=== PATIENT | female | born 1935 ===

== ENCOUNTER 2017-10-24 13:03 | Inpatient (IN) | payer MEDICARE, OTHER ==
[2017-10-24 13:15] VITALS: BMI 23.0
--- NOTE | 2017-10-24 14:08 | C.PDOC ---
History Of Present Illness 82 yr old female with PMHx of HTN and cholesterol, presents to the ER s/p slip and fall. Patient states she was in [employer] when she slipped landing on her right hip. Reports of pain to the area. Denies LOC, head injury, back pain, weakness or numbness. 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 Are (Timing): Still Present Recent travel outside of the [place]: No - Hip Description Of Injury: Fell Past Medical History Reviewed: Historical Data, Nursing Documentation, Vital Signs Vital Signs: Last Vital Signs Temp 97.7 F 10/24/17 13:16 Pulse 69 10/24/17 15:59 Resp 18 10/24/17 15:59 BP 135/63 10/24/17 15:59 Pulse Ox 96 10/24/17 15:59 - Medical History PMH: HTN, Hypercholesterolemia Family History: States: No Known Family Hx - Social History Hx Alcohol Use: No Hx Substance Use: No - Immunization History Hx Tetanus Toxoid Vaccination: Yes Hx Influenza Vaccination: No Hx Pneumococcal Vaccination: No Review Of Systems Except As Marked, All Systems Reviewed And Found Negative. Musculoskeletal: Positive for: Other ((+) right hip pain). Negative for: Back Pain Neurological: Negative for: Weakness, Numbness Physical Exam - Physical Exam Appears: Non-toxic, No Acute Distress Skin: Warm, Dry, No Rash Head: Atraumatic, Normacephalic Neck: Normal ROM, Supple Respiratory: Normal Breath Sounds, No Rales, No Rhonchi, No Stridor, No Wheezing Extremity: Normal ROM, No Calf Tenderness, Other ((+) Right hip, tenderness with rotation) Pulses: Left Dorsalis Pedis: Normal, Right Dorsalis Pedis: Normal Neurological/Psych: Oriented x3, Normal Speech, Normal Motor ED Course And Treatment - Laboratory Results Result Diagrams: 10/24/17 15:30 10/24/17 15:30 O2 Sat by Pulse Oximetry: 100 (RA) Pulse Ox Interpretation: Normal - Other Rad X-Ray - Right Hip w/ Pelvis X-Ray: Viewed By Me, Read By Radiologist Interpretation: Indication: Rule out fracture, status post fall. Right hip with pelvis radiographs. Comparison: None available. Findings: Examination limited by habitus. Comminuted displaced right intratrochanteric fracture deformity. The femoral heads appear located. Sacroiliac joints appear intact. Mild constipation. No evidence of radiopaque foreign body. Impression: Comminuted displaced intertrochanteric right hip fracture. ER aware of the above findings at the time of dictation as per Alisha on 10/24/17 at 3:22 p.m. CXR X-Ray: Viewed By Me, Read By Radiologist Interpretation: Chest x-ray single frontal view. History: Shortness of breath. Comparison: None available. Findings: Side plate with screw fixation of prior left humeral fracture. Productive change along fracture site medially and laterally. Clinical correlation. Biapical pleural thickening with upper lobe granulomatous changes. Diffuse increased interstitial lung markings. No gross focal infiltrate or effusion. Tortuous aorta. Degenerative changes in the spine and right shoulder. Impression: Biapical pleural thickening with upper lobe granulomatous changes. Diffuse increased interstitial lung markings. No gross focal infiltrate or effusion. Progress Note: Spoke to Dr. Francisco Garcia and Dr. Shayan gamboa patient. Dr. Francisco Garcia requested CAT scan of the hip. Patient is pending CAT scan report. Medical Decision Making Medical Decision Making: PLAN: * CT - Right Hip * X-Ray - Right Hip w/ Pelvis * CXR * Tylenol PO Disposition Discussed With : Nayan Downey Jr. Counseled Patient/Family Regarding: Studies Performed, Diagnosis - Disposition Disposition: HOSPITALIZED Disposition Time: 15:05 Condition: GUARDED - POA Present On Arrival: None - Clinical Impression Clinical Impression: Femoral neck fracture - Scribe Statement The provider has reviewed the documentation as recorded by the Maya Coffey Provider Attestation: All medical record entries made by the Maya were at my direction and personally dictated by me. I have reviewed the chart and agree that the record accurately reflects my personal performance of the history, physical exam, medical decision making, and the department course for this patient. I have also personally directed, reviewed, and agree with the discharge instructions and disposition. Decision To Admit - Pt Status Changed To: Hospital Disposition Of: Inpatient - Admit Certification Admit to Inpatient:: After my assessment, the patient will require hospitalization for at least two midnights. This is because of the severity of symptoms shown, intensity of services needed, and/or the medical risk in this patient being treated as an outpatient. - InPatient: Physician Admission Certification: I certify that this patient requires 2 or more midnights of care for the following reason:: hip fracture - . Bed Request Type: Regular Patient Diagnosis: Femoral neck fracture
--- NOTE | 2017-10-24 15:19 | CP.PCM.HP ---
History of Present Illness - History of Present Illness History of Present Illness: Patient was seen and examined at approximately 4pm in the ED. Patient is a Full code status at this time until family is able to have a conversation and decide. emergency contacts: Daughter Sally Deng [phone]; Son Naren Deng [phone] CC: "I tripped and fell " HPI: 82 year old female with past medical history significant for HTN, hypercholesterolemia, osteoporosis and prior compression fracture approx 1.5 years ago presents with complaints of pain and instability of right leg. Patient was at [facility] earlier this afternoon when she tripped and fell on a rug while going down a short flight of stairs. Patient denies any trauma at the time. She states that she attempted to stand with the help of nearby friends and the solar engineer but was unable to. She was thus brought to the hospital for further evaluation. Patient states that she had a fall back in July which resulted in a fracture of her left arm requiring surgery. Patient states that prior to this event and her fall back in July, she felt just fine. She states that she has been going to physical therapy three times a week following the arm fracture. Prior to these recent falls, patient has not had any issues ambulating . She denies any other contributing factors such as dizziness, headaches, lightheadedness, chest pain, dyspnea, trouble ambulating, paresthesias or palpitations at this time. Past Medical history: as stated above Past Surgical History: Left arm surgery approx August 13, 2017 Family History: Dad and brother of heart disease, Sister had diabetes; Mom had a lung condition as well as dysphagia Medications: Patient is unsure at this time. She states that she takes something for her HTN and cholesterol. 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 Allergies: no known drug allergies PMD: Dr. Javier Painter on [facility] In ED: Labs were obtained. XRAY of the hip and pelvis was taken- Confirming right hip fracture. Patient administered Tylenol and morphine Present on Admission - Present on Admission Any Indicators Present on Admission: No Review of Systems - Review of Systems Systems not reviewed;Unavailable: Language Barrier - Constitutional Constitutional: absent: Weight Loss, Weakness - EENT Eyes: absent: Blurred Vision, Change in Vision Ears: absent: Decreased Hearing, Ear Discharge Nose/Mouth/Throat: absent: Nasal Congestion, Nasal Discharge - Cardiovascular Cardiovascular: absent: Chest Pain - Respiratory Respiratory: absent: Dyspnea, Dyspnea on Exertion - Gastrointestinal Gastrointestinal: absent: Heartburn, Nausea, Vomiting - Musculoskeletal Musculoskeletal: Abnormal Gait, Limited Range of Motion. absent: Stiffness, Tingling - Neurological Neurological: absent: Dizziness, Numbness, Headaches, Sensory Deficit, Tingling , Tremor Past Patient History - Past Social History Smoking Status: Never Smoked Alcohol: None Drugs: Denies - CARDIAC Hx Hypercholesterolemia: Yes Hx Hypertension: Yes - PSYCHIATRIC Hx Substance Use: No - SURGICAL HISTORY Other/Comment: (L) arm surgery post fall "2 months ago" Meds Allergies/Adverse Reactions: Allergies Allergy/AdvReac Type Severity Reaction Status Date / Time No Known Allergies Allergy Unverified 10/24/17 13:15 Physical Exam - Constitutional Appears: Non-toxic, No Acute Distress - Head Exam Head Exam: ATRAUMATIC, NORMAL INSPECTION, NORMOCEPHALIC - Eye Exam Eye Exam: EOMI, Normal appearance, PERRL Pupil Exam: NORMAL ACCOMODATION - ENT Exam ENT Exam: Mucous Membranes Moist - Neck Exam Neck exam: Positive for: Full Rom - Respiratory Exam Respiratory Exam: Clear to Auscultation Bilateral, NORMAL BREATHING PATTERN. absent: Wheezes - Cardiovascular Exam Cardiovascular Exam: REGULAR RHYTHM, +S1, +S2. absent: Bradycardia, Tachycardia , Irregular Rhythm, JVD, Systolic Murmur - GI/Abdominal Exam GI & Abdominal Exam: Normal Bowel Sounds, Soft. absent: Guarding - Extremities Exam Extremities exam: Negative for: full ROM (decreased range of motion of right lower extremity, sensation intact) - Expanded Lower Extremities Exam Right Upper Leg exam: absent: full ROM Lower Leg Exam: absent: full ROM Neuro vacular tendon exam: absent: decreased fine/light touch, extremity cold to touch, pulse deficit, sensory deficit Gait: unable to bear weight - Neurological Exam Neurological exam: Alert, Oriented x3 - Expanded Neurological Exam Expanded Cranial nerves: EOM's Intact: Normal, Facial Sensation: Normal Sensory exam: Lower Extremity Light Touch: Normal, Lower Extremity Temperature: Normal, Upper Extremity Light Touch: Normal, Upper Extremity Temperature: Normal - Psychiatric Exam Psychiatric exam: Normal Affect, Normal Mood - Skin Skin Exam: Dry, Normal Color, Warm Results - Vital Signs Recent Vital Signs: Last Vital Signs Temp 97.7 F 10/24/17 13:16 Pulse 68 10/24/17 13:16 Resp 18 10/24/17 13:16 BP 181/77 H 10/24/17 13:16 Pulse Ox 100 10/24/17 15:07 - Labs Result Diagrams: 10/24/17 15:30 10/24/17 15:30 Assessment & Plan (1) Fracture of right hip Assessment and Plan: Xray of the Hip and Pelvis- Comminuted displaced right intratrochanteric fracture deformity. The femoral heads appear located. Sacroiliac joints appear intact. Mild constipation. No evidence of radiopaque foreign body. Refer to complete report F/U Hip CT F/U Ortho recommendations CXR- Biapical pleural thickening with upper lobe granulomatous changes. Diffuse increased interstitial lung markings. F/U EKG ( Pre-Op) F/U Am labs, Coags Status: Acute (2) Hypertension Assessment and Plan: Normotensive at this time May be elevated secondarily due to pain Continue to monitor Status: Chronic (3) Hypercholesteremia Assessment and Plan: Patient's daughter will try to bring in medication list. Status: Chronic (4) Osteoporosis Assessment and Plan: Hx of Osteoporosis Patient would benefit from DEXA Scan outpatient if she has not already obtained with primary medical doctor. F/U Vitamin D Level 25-OH Status: Chronic (5) Prophylactic measure Assessment and Plan: Contraindications for Chemical and Mechanical anticoagulation due to acute fracture. Hold off at this time in anticipation of surgery. Pepcid 20 mg PO BID Status: Acute - Assessment and Plan (Free Text) Assessment: Discussed with attending. All management and planning per Dr. Downey.
--- NOTE | 2017-10-24 15:25 | RAD ---
Indication: Rule out fracture, status post fall Right hip with pelvis radiographs Comparison: None available Findings: Examination limited by habitus. Comminuted displaced right intratrochanteric fracture deformity. The femoral heads appear located. Sacroiliac joints appear intact. Mild constipation. No evidence of radiopaque foreign body. Impression: Comminuted displaced intertrochanteric right hip fracture. ER aware of the above findings at the time of dictation as per Alisha on 10/24/17 at 3:22 p.m.
[2017-10-24 15:38] LABS: BASO # 0.1 K/uL (0.0-0.2); BASO % 0.4 % (0.0-2.0); EOS % 0.2 % (0.0-4.0); HEMOGLOBIN 14.5 g/dL (11.0-16.0); LYMPH # 1.3 K/uL (1.0-4.3); LYMPH % 10.5 % (20.0-40.0); MEAN CELL VOLUME 95.3 fL (81.0-99.0); MEAN CORPUSCULAR HEMOGLOBIN 31.7 pg (27.0-31.0); MEAN CORPUSCULAR HGB CONC 33.3 g/dL (33.0-37.0); MEAN PLATELET VOLUME 9.6 fL (7.2-11.7); MONO # 0.7 K/uL (0.0-0.8); MONO % 5.7 % (0.0-10.0); NEUT % 83.2 % (50.0-75.0); NRBC % 0.1 % (0.0-2.0); RBC 4.58 Mil/uL (3.80-5.20); RED CELL DISTRIBUTION WIDTH 13.9 % (11.5-14.5)
--- NOTE | 2017-10-24 15:51 | RAD ---
Chest x-ray single frontal view History: Shortness of breath. Comparison: None available. Findings: Side plate with screw fixation of prior left humeral fracture. Productive change along fracture site medially and laterally. Clinical correlation. Biapical pleural thickening with upper lobe granulomatous changes. Diffuse increased interstitial lung markings. No gross focal infiltrate or effusion. Tortuous aorta. Degenerative changes in the spine and right shoulder. Impression: Biapical pleural thickening with upper lobe granulomatous changes. Diffuse increased interstitial lung markings. No gross focal infiltrate or effusion.
[2017-10-24 15:55] LABS: CALCIUM 9.2 mg/dl (8.6-10.4); GFR AFRICAN-AMERICAN > 60; GFR NON-AFRICAN AMERICAN > 60
[2017-10-24 16:14] LABS: BLOOD UREA NITROGEN 18 mg/dL (7-17)
[2017-10-25 06:54] LABS: BASO % 0.3 % (0.0-2.0); LYMPH # 1.8 K/uL (1.0-4.3); LYMPH % 18.9 % (20.0-40.0); MEAN CORPUSCULAR HEMOGLOBIN 32.5 pg (27.0-31.0); MEAN CORPUSCULAR HGB CONC 34.2 g/dL (33.0-37.0); MEAN PLATELET VOLUME 9.9 fL (7.2-11.7); MONO % 10.2 % (0.0-10.0); NEUT # 6.7 K/uL (1.8-7.0); NEUT % 70.6 % (50.0-75.0); RBC 3.73 Mil/uL (3.80-5.20); RED CELL DISTRIBUTION WIDTH 13.7 % (11.5-14.5); WHITE BLOOD COUNT 9.5 K/uL (4.8-10.8)
[2017-10-25 07:00] LABS: HEMOGLOBIN 12.1 g/dL (11.0-16.0)
[2017-10-25 07:01] LABS: INR 1.1; PROTHROMBIN TIME 12.1 SECONDS (9.7-12.2)
--- NOTE | 2017-10-25 07:20 | CP.PCM.PN ---
Subjective - Date & Time of Evaluation Date of Evaluation: 10/25/17 Time of Evaluation: 07:20 - Subjective Subjective: Medicine Progress Note: Hospitalist Service Patient seen and examined at bedside. Per nursing no acute events overnight. Patient is doing w Objective - Vital Signs/Intake and Output Vital Signs (last 24 hours): Temp Pulse Resp BP Pulse Ox 98.0 F 93 H 20 148/87 97 10/24/17 23:20 10/24/17 23:20 10/24/17 23:20 10/24/17 23:20 10/24/17 23:20 Intake and Output: 10/25/17 10/25/17 06:59 18:59 Intake Total 0 Balance 0 - Medications Medications: Current Medications Famotidine (Pepcid) 20 mg PO BID [facility] Last Admin: 10/24/17 18:27 Dose: 20 mg Home Med (Atorvastatin Calcium [Atorvastatin Calcium]) 10 mg PO DAILY [facility] Sodium Chloride (Sodium Chloride 0.9%) 1,000 mls @ 100 mls/hr IV .Q10H [facility] Last Admin: 10/25/17 00:00 Dose: Not Given Metoprolol Tartrate (Lopressor) 50 mg PO BID [facility] Morphine Sulfate (Morphine) 1 mg IV Q4 PRN PRN Reason: Pain, moderate (4-7) Last Admin: 10/25/17 01:19 Dose: 1 mg - Labs Labs: 10/25/17 06:45 10/24/17 15:30 PT 12.1 SECONDS (9.7-12.2) 10/25/17 06:45 INR 1.1 10/25/17 06:45 APTT 18 SECONDS (21-34) L 10/25/17 06:45
[2017-10-25] MEDS ORDERED: Enoxaparin 40 mg Syringe SC ONE (07:25)
--- NOTE | 2017-10-25 07:25 | CP.PCM.CON ---
History of Present Illness - History of Present Illness History of Present Illness: ORthopedic consultation as per Dr. Bolden 82F complains of right hip pain after fall, found to have right hip fx. Denies CP/SOB/dizziness/n/v/numbmess/tinging. PMH: HTN NKDA Past Patient History - Past Medical History & Family History Past Medical History?: Yes - Past Social History Smoking Status: Never Smoked - CARDIAC Hx Cardiac Disorders: Yes Hx Hypercholesterolemia: Yes Hx Hypertension: Yes - PULMONARY Hx Respiratory Disorders: No - NEUROLOGICAL Hx Neurological Disorder: No - HEENT Hx HEENT Problems: No - RENAL Hx Chronic Kidney Disease: No - ENDOCRINE/METABOLIC Hx Endocrine Disorders: No - HEMATOLOGICAL/ONCOLOGICAL Hx Blood Disorders: No - INTEGUMENTARY Hx Dermatological Problems: No - MUSCULOSKELETAL/RHEUMATOLOGICAL Hx Musculoskeletal Disorders: Yes Hx Falls: Yes - GASTROINTESTINAL Hx Gastrointestinal Disorders: No - GENITOURINARY/GYNECOLOGICAL Hx Genitourinary Disorders: No - PSYCHIATRIC Hx Psychophysiologic Disorder: No Hx Substance Use: No - SURGICAL HISTORY Hx Surgeries: No Other/Comment: (L) arm surgery post fall "2 months ago" - ANESTHESIA Hx Anesthesia: Yes Hx Anesthesia Reactions: No Hx Malignant Hyperthermia: No Has any member of the family had a problem w/ anesthesia?: No Meds Allergies/Adverse Reactions: Allergies Allergy/AdvReac Type Severity Reaction Status Date / Time No Known Allergies Allergy Unverified 10/24/17 13:15 - Medications Medications: Current Medications Famotidine (Pepcid) 20 mg PO BID [facility] Last Admin: 10/24/17 18:27 Dose: 20 mg Home Med (Atorvastatin Calcium [Atorvastatin Calcium]) 10 mg PO DAILY [facility] Sodium Chloride (Sodium Chloride 0.9%) 1,000 mls @ 100 mls/hr IV .Q10H [facility] Last Admin: 10/25/17 00:00 Dose: Not Given Metoprolol Tartrate (Lopressor) 50 mg PO BID [facility] Morphine Sulfate (Morphine) 1 mg IV Q4 PRN PRN Reason: Pain, moderate (4-7) Last Admin: 10/25/17 01:19 Dose: 1 mg Physical Exam - Constitutional Appears: Well, No Acute Distress - Head Exam Head Exam: ATRAUMATIC - Respiratory Exam Respiratory Exam: NORMAL BREATHING PATTERN - Back Exam Additional comments: LLE: in bucks traction +ROM ankle/toes, sensation intact, calves soft NT neg homans, shortened - Neurological Exam Neurological exam: Alert, Oriented x3 - Psychiatric Exam Psychiatric exam: Normal Affect, Normal Mood - Skin Skin Exam: Dry, Intact, Normal Color, Warm Results - Vital Signs Recent Vital Signs: Last Vital Signs Temp 98.0 F 10/24/17 23:20 Pulse 93 H 10/24/17 23:20 Resp 20 10/24/17 23:20 BP 148/87 10/24/17 23:20 Pulse Ox 97 10/24/17 23:20 - Labs Result Diagrams: 10/26/17 11:26 10/26/17 11:26 Labs: Laboratory Results - last 24 hr 10/24/17 10/24/17 10/24/17 15:30 15:30 15:30 WBC 12.0 H RBC 4.58 Hgb 14.5 Hct 43.6 MCV 95.3 MCH 31.7 H MCHC 33.3 RDW 13.9 Plt Count 167 MPV 9.6 Neut % (Auto) 83.2 H Lymph % (Auto) 10.5 L Maverick % (Auto) 5.7 Eos % (Auto) 0.2 Baso % (Auto) 0.4 Neut # 10.0 H Lymph # 1.3 Maverick # 0.7 Eos # 0.0 Baso # 0.1 PT INR APTT Sodium 133 Potassium 5.9 H Chloride 101 Carbon Dioxide 22 Anion Gap 16 BUN 18 H Creatinine 0.6 L Est GFR ( Amer) > 60 Est GFR (Non-Af Amer) > 60 Random Glucose 106 H Calcium 9.2 Blood Type O POSITIVE Antibody Screen Negative 10/25/17 10/25/17 06:45 06:45 WBC 9.5 RBC 3.73 L Hgb 12.1 D Hct 35.5 MCV 95.0 MCH 32.5 H MCHC 34.2 RDW 13.7 Plt Count 134 MPV 9.9 Neut % (Auto) 70.6 Lymph % (Auto) 18.9 L Maverick % (Auto) 10.2 H Eos % (Auto) 0.0 Baso % (Auto) 0.3 Neut # 6.7 Lymph # 1.8 Maverick # 1.0 H Eos # 0.0 Baso # 0.0 PT 12.1 INR 1.1 APTT 18 L Sodium Potassium Chloride Carbon Dioxide Anion Gap BUN Creatinine Est GFR ( Amer) Est GFR (Non-Af Amer) Random Glucose Calcium Blood Type Antibody Screen Assessment & Plan (1) Closed intertrochanteric fracture of right femur Assessment and Plan: Plan OR 10/[address] Yuan mcnair u/a t&C SCD lovenox 40mgSQ now and then hold for OR d/w Dr. Bolden, agrees with above Status: Acute
--- NOTE | 2017-10-25 07:54 | CP.PCM.PN ---
Subjective - Date & Time of Evaluation Date of Evaluation: 10/25/17 Time of Evaluation: 07:54 - Subjective Subjective: Medicine Progress Note: Dr Downey service Patient seen and examined at bedside. Per nursing no acute events overnight. Patient having right hip pain. Also states that she is not hungry and has low appetite. Of note, patient does have urge to urinate but has not been able to urinate using the bedpan. Last time was yesterday morning. Patient going to OR tomorrow with ortho. Denies headaches, chest pain palpitations, sob, abdominal pain, changes in bowel habits. Objective - Vital Signs/Intake and Output Vital Signs (last 24 hours): Temp Pulse Resp BP Pulse Ox 98.0 F 93 H 20 148/87 97 10/24/17 23:20 10/24/17 23:20 10/24/17 23:20 10/24/17 23:20 10/24/17 23:20 Intake and Output: 10/25/17 10/25/17 06:59 18:59 Intake Total 0 Balance 0 - Medications Medications: Current Medications Famotidine (Pepcid) 20 mg PO BID [facility] Last Admin: 10/24/17 18:27 Dose: 20 mg Home Med (Atorvastatin Calcium [Atorvastatin Calcium]) 10 mg PO DAILY [facility] Sodium Chloride (Sodium Chloride 0.9%) 1,000 mls @ 100 mls/hr IV .Q10H [facility] Last Admin: 10/25/17 00:00 Dose: Not Given Metoprolol Tartrate (Lopressor) 50 mg PO BID [facility] Morphine Sulfate (Morphine) 1 mg IV Q4 PRN PRN Reason: Pain, moderate (4-7) Last Admin: 10/25/17 01:19 Dose: 1 mg - Labs Labs: 10/25/17 06:45 10/24/17 15:30 PT 12.1 SECONDS (9.7-12.2) 10/25/17 06:45 INR 1.1 10/25/17 06:45 APTT 18 SECONDS (21-34) L 10/25/17 06:45 - Constitutional Appears: Non-toxic, No Acute Distress - Head Exam Head Exam: ATRAUMATIC, NORMAL INSPECTION - Eye Exam Eye Exam: EOMI, Normal appearance - Respiratory Exam Respiratory Exam: Clear to Ausculation Bilateral, NORMAL BREATHING PATTERN. absent: Rales, Rhonchi, Wheezes - Cardiovascular Exam Cardiovascular Exam: Tachycardia, Irregular Rhythm, +S1, +S2 - GI/Abdominal Exam GI & Abdominal Exam: Soft, Normal Bowel Sounds. absent: Firm, Guarding, Rigid, Tenderness - Extremities Exam Additional comments: +Right sided hip pain - Neurological Exam Neurological Exam: Alert, Awake, Oriented x3 - Psychiatric Exam Psychiatric exam: Normal Affect, Normal Mood - Skin Skin Exam: Dry, Normal Color, Warm Assessment and Plan - Assessment and Plan (Free Text) Assessment: (1) Fracture of right hip Assessment and Plan: * Xray of the Hip and Pelvis- Comminuted displaced right intratrochanteric fracture deformity. The femoral heads appear located. Sacroiliac joints appear intact. Mild constipation. No evidence of radiopaque foreign body. Refer to complete report * Hip CT showed acute intertrochanteric fracture of the right hip * Patient will be NPO after midnight, going to the OR tomorrow * Ortho on consult, Dr Francisco Foley, F/U recommendations * CXR- Biapical pleural thickening with upper lobe granulomatous changes. Diffuse increased interstitial lung markings. * EKG 10/25/17: Atrial fibrillation with RVR * F/U Am labs, Coags Status: Acute (2) New Onset Afib Assessment and Plan: * EKG this morning showed Afib with RVR * Monitor on telemetry * Continue Lopressor 50mg PO BID * Added Cardizem 60mg PO BID * Echo ordered, f/u official read * Cardiology on consult, Dr Soliman, F/U recommendations (3) Hypertension Assessment and Plan: * Normotensive at this time * May be elevated secondarily due to pain * Continue to monitor Status: Chronic (4) Hypercholesteremia Assessment and Plan: * Patient's daughter will try to bring in medication list. Status: Chronic (5) Osteoporosis Assessment and Plan: * Hx of Osteoporosis * Patient would benefit from DEXA Scan outpatient if she has not already obtained with primary medical doctor. * F/U Vitamin D Level 25-OH Status: Chronic (6) Prophylactic measure Assessment and Plan: * Contraindications for Chemical and Mechanical anticoagulation due to acute fracture. * Hold off at this time in anticipation of surgery. * Pepcid 20 mg PO BID Status: Acute
[2017-10-25 08:18] LABS: ALB/GLOB RATIO 1.1 (1.0-2.1); ALBUMIN 3.5 g/dL (3.5-5.0); ALT/SGPT 21 U/L (9-52); AST/SGOT 23 U/L (14-36); BLOOD UREA NITROGEN 15 mg/dL (7-17); CALCIUM 8.4 mg/dl (8.6-10.4); GFR AFRICAN-AMERICAN > 60; GFR NON-AFRICAN AMERICAN > 60; MAGNESIUM 1.5 mg/dL (1.6-2.3)
--- NOTE | 2017-10-25 08:28 | CT ---
CT right hip History: Injury. Comparison: None available. Technique: Multiple contiguous axial images were performed through the right hip without intravenous contrast. Subsequently, sagittal and coronal reformatted images were obtained. This CT exam was performed using one or more of the following dose reduction techniques: Automated exposure control, adjustment of the mA and/or kV according to patient size, and/or use of iterative reconstruction technique. Findings: Intertrochanteric fracture of the right hip is present with moderate angulation and mild displacement. Butterfly fragment is seen involving the lesser trochanter. Subchondral cyst formation within the anterior acetabulum. Productive change along the acetabulum laterally. Diffuse osteopenia. 1 centimeter bone island in the right iliac bone. Productive change at the pubic symphysis. Uterine calcifications. Moderate amount of fecal retention in the colon. Impression: Acute intertrochanteric fracture of the right hip as described above. These findings were preliminarily reported at 5:43 p.m. on 10/24/[address] Rigo Tuttle from [facility].
[2017-10-25] MEDS: Sodium Chloride 0.9% 1,000 ML IV SCH ×3 (10:44→20:01)
[2017-10-25 11:22] LABS: SQUAMOUS EPITHIAL < 1 /hpf (0-5); URINE BACTERIA MANY (<OCC); URINE BILIRUBIN NEGATIVE (NEGATIVE); URINE BLOOD 2+ (NEGATIVE); URINE CLARITY Clear (Clear); URINE COLOR Yellow (YELLOW); URINE GLUCOSE (UA) NORMAL (Normal); URINE LEUKOCYTE ESTERASE NEG Leu/uL (Negative); URINE NITRATE NEGATIVE (NEGATIVE); URINE PROTEIN NEGATIVE (NEGATIVE); URINE UROBILINOGEN NORMAL mg/dL (0.2-1.0)
--- NOTE | 2017-10-25 22:24 | CARD ---
APPROVED REPORT EKG Measurement Heart [id number] <Conclusion> Atrial fibrillation with rapid ventricular response ST & T wave abnormality, consider inferior ischemia ST & T wave abnormality, consider anterior ischemia Abnormal ECG
--- NOTE | 2017-10-25 22:30 | CP.PCM.CON ---
History of Present Illness - History of Present Illness History of Present Illness: CC: Pre Op cardiac Risk assessment HPI: 82 year old female with past medical history significant for HTN, hypercholesterolemia, osteoporosis and prior compression fracture approx 1.5 years ago presents with complaints of pain and instability of right leg. Patient was at [employer] earlier this afternoon when she tripped and fell on a rug while going down a short flight of stairs. Patient denies any trauma at the time. She states that she attempted to stand with the help of nearby friends and the microsoft application developer but was unable to. She was thus brought to the hospital for further evaluation. Patient states that she had a fall back in July which resulted in a fracture of her left arm requiring surgery. Patient states that prior to this event and her fall back in July, she felt just fine. She states that she has been going to physical therapy three times a week following the arm fracture. Prior to these recent falls, patient has not had any issues ambulating . She denies any other contributing factors such as dizziness, headaches, lightheadedness, chest pain, dyspnea, trouble ambulating, paresthesias or palpitations at this time. Past Medical history: as stated above Past Surgical History: Left arm surgery approx August 13, 2017 Family History: Dad and brother of heart disease, Sister had diabetes; Mom had a lung condition as well as dysphagia Medications: Patient is unsure at this time. She states that she takes something for her HTN and cholesterol. 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 Allergies: no known drug allergies PMD: Dr. Javier Painter on [facility] in [facility] In ED: Labs were obtained. XRAY of the hip and pelvis was taken- Confirming right hip fracture. Patient administered Tylenol and morphine Present on Admission - Present on Admission Any Indicators Present on Admission: No Review of Systems - Review of Systems Systems not reviewed;Unavailable: Language Barrier - Constitutional Constitutional: absent: Weight Loss, Weakness - EENT Eyes: absent: Blurred Vision, Change in Vision Ears: absent: Decreased Hearing, Ear Discharge Nose/Mouth/Throat: absent: Nasal Congestion, Nasal Discharge - Cardiovascular Cardiovascular: absent: Chest Pain - Respiratory Respiratory: absent: Dyspnea, Dyspnea on Exertion - Gastrointestinal Gastrointestinal: absent: Heartburn, Nausea, Vomiting - Musculoskeletal Musculoskeletal: Abnormal Gait, Limited Range of Motion. absent: Stiffness, Tingling - Neurological Neurological: absent: Dizziness, Numbness, Headaches, Sensory Deficit, Tingling , Tremor Meds Allergies/Adverse Reactions: Allergies Allergy/AdvReac Type Severity Reaction Status Date / Time No Known Allergies Allergy Unverified 10/24/17 13:15 Physical Exam - Constitutional Appears: Non-toxic, No Acute Distress - Head Exam Head Exam: ATRAUMATIC, NORMAL INSPECTION, NORMOCEPHALIC - Eye Exam Eye Exam: EOMI, Normal appearance, PERRL Pupil Exam: NORMAL ACCOMODATION - ENT Exam ENT Exam: Mucous Membranes Moist - Neck Exam Neck exam: Positive for: Full Rom - Respiratory Exam Respiratory Exam: Clear to Auscultation Bilateral, NORMAL BREATHING PATTERN. absent: Wheezes - Cardiovascular Exam Cardiovascular Exam: REGULAR RHYTHM, +S1, +S2. absent: Bradycardia, Tachycardia , Irregular Rhythm, JVD, Systolic Murmur - GI/Abdominal Exam GI & Abdominal Exam: Normal Bowel Sounds, Soft. absent: Guarding - Extremities Exam Extremities exam: Negative for: full ROM (decreased range of motion of right lower extremity, sensation intact) - Expanded Lower Extremities Exam Right Upper Leg exam: absent: full ROM Lower Leg Exam: absent: full ROM Neuro vacular tendon exam: absent: decreased fine/light touch, extremity cold to touch, pulse deficit, sensory deficit Gait: unable to bear weight - Neurological Exam Neurological exam: Alert, Oriented x3 - Expanded Neurological Exam Expanded Cranial nerves: EOM's Intact: Normal, Facial Sensation: Normal Sensory exam: Lower Extremity Light Touch: Normal, Lower Extremity Temperature: Normal, Upper Extremity Light Touch: Normal, Upper Extremity Temperature: Normal - Psychiatric Exam Psychiatric exam: Normal Affect, Normal Mood - Skin Skin Exam: Dry, Normal Color, Warm Past Patient History - Past Medical History & Family History Past Medical History?: Yes - Past Social History Smoking Status: Never Smoked - CARDIAC Hx Cardiac Disorders: Yes Hx Hypercholesterolemia: Yes Hx Hypertension: Yes - PULMONARY Hx Respiratory Disorders: No - NEUROLOGICAL Hx Neurological Disorder: No - HEENT Hx HEENT Problems: No - RENAL Hx Chronic Kidney Disease: No - ENDOCRINE/METABOLIC Hx Endocrine Disorders: No - HEMATOLOGICAL/ONCOLOGICAL Hx Blood Disorders: No - INTEGUMENTARY Hx Dermatological Problems: No - MUSCULOSKELETAL/RHEUMATOLOGICAL Hx Musculoskeletal Disorders: Yes Hx Falls: Yes - GASTROINTESTINAL Hx Gastrointestinal Disorders: No - GENITOURINARY/GYNECOLOGICAL Hx Genitourinary Disorders: No - PSYCHIATRIC Hx Psychophysiologic Disorder: No Hx Substance Use: No - SURGICAL HISTORY Hx Surgeries: No Other/Comment: (L) arm surgery post fall "2 months ago" - ANESTHESIA Hx Anesthesia: Yes Hx Anesthesia Reactions: No Hx Malignant Hyperthermia: No Has any member of the family had a problem w/ anesthesia?: No Meds Allergies/Adverse Reactions: Allergies Allergy/AdvReac Type Severity Reaction Status Date / Time No Known Allergies Allergy Unverified 10/24/17 13:15 - Medications Medications: Current Medications Diltiazem HCl (Cardizem) 60 mg PO BID [facility] Last Admin: 10/25/17 18:03 Dose: 60 mg Famotidine (Pepcid) 20 mg PO BID [facility] Last Admin: 10/25/17 18:03 Dose: 20 mg Sodium Chloride (Sodium Chloride 0.9%) 1,000 mls @ 100 mls/hr IV .Q10H [facility] Last Admin: 10/25/17 20:01 Dose: 100 mls/hr Metoprolol Tartrate (Lopressor) 50 mg PO BID [facility] Last Admin: 10/25/17 18:04 Dose: 50 mg Morphine Sulfate (Morphine) 1 mg IV Q4 PRN PRN Reason: Pain, moderate (4-7) Last Admin: 10/25/17 19:55 Dose: 1 mg Rosuvastatin Calcium (Crestor) 5 mg PO HS [facility] Last Admin: 10/25/17 22:01 Dose: 5 mg Results - Vital Signs Recent Vital Signs: Last Vital Signs Temp 99.0 F 10/25/17 15:25 Pulse 81 10/25/17 15:25 Resp 20 10/25/17 15:25 BP 117/69 10/25/17 15:25 Pulse Ox 94 L 10/25/17 15:25 - Labs Result Diagrams: 10/25/17 06:45 10/25/17 06:45 Labs: Laboratory Results - last 24 hr 10/25/17 10/25/17 10/25/17 06:45 06:45 06:45 WBC 9.5 RBC 3.73 L Hgb 12.1 D Hct 35.5 MCV 95.0 MCH 32.5 H MCHC 34.2 RDW 13.7 Plt Count 134 MPV 9.9 Neut % (Auto) 70.6 Lymph % (Auto) 18.9 L [place] % (Auto) 10.2 H Eos % (Auto) 0.0 Baso % (Auto) 0.3 Neut # 6.7 Lymph # 1.8 [place] # 1.0 H Eos # 0.0 Baso # 0.0 PT 12.1 INR 1.1 APTT 18 L Sodium Potassium Chloride Carbon Dioxide Anion Gap BUN Creatinine Est GFR ( Amer) Est GFR (Non-Af Amer) Random Glucose Calcium Phosphorus Magnesium Total Bilirubin AST ALT Alkaline Phosphatase Total Protein Albumin Globulin Albumin/Globulin Ratio 25-OH Vitamin D Total Urine Color Urine Clarity Urine pH Ur Specific [place] Urine Protein Urine Glucose (UA) Urine Ketones Urine Blood Urine Nitrate Urine Bilirubin Urine Urobilinogen Ur Leukocyte Esterase Urine WBC (Auto) Urine RBC (Auto) Ur Squamous Epith Cells Urine Bacteria Blood Type O POSITIVE Antibody Screen Negative 10/25/17 10/25/17 10/25/17 06:45 06:45 11:04 WBC RBC Hgb Hct MCV MCH MCHC RDW Plt Count MPV Neut % (Auto) Lymph % (Auto) [place] % (Auto) Eos % (Auto) Baso % (Auto) Neut # Lymph # [place] # Eos # Baso # PT INR APTT Sodium 133 Potassium 3.7 Chloride 104 Carbon Dioxide 21 L Anion Gap 12 BUN 15 Creatinine 0.5 L Est GFR ( Amer) > 60 Est GFR (Non-Af Amer) > 60 Random Glucose 106 H Calcium 8.4 L Phosphorus 2.8 Magnesium 1.5 L Total Bilirubin 0.8 AST 23 ALT 21 Alkaline Phosphatase 84 Total Protein 6.8 Albumin 3.5 Globulin 3.3 Albumin/Globulin Ratio 1.1 25-OH Vitamin D Total 46.1 Urine Color Yellow Urine Clarity Clear Urine pH 5.0 Ur Specific [place] 1.020 Urine Protein Negative Urine Glucose (UA) Normal Urine Ketones 2+ H Urine Blood 2+ H Urine Nitrate Negative Urine Bilirubin Negative Urine Urobilinogen Normal Ur Leukocyte Esterase Neg Urine WBC (Auto) 2 Urine RBC (Auto) 12 H Ur Squamous Epith Cells < 1 Urine Bacteria Many H Blood Type Antibody Screen Assessment & Plan - Assessment and Plan (Free Text) Assessment: (1) Fracture of right hip Assessment and Plan: * Xray of the Hip and Pelvis- Comminuted displaced right intratrochanteric fracture deformity. The femoral heads appear located. Sacroiliac joints appear intact. Mild constipation. No evidence of radiopaque foreign body. Refer to complete report * Hip CT showed * Patient will be NPO after midnight, going to the OR tomorrow * Ortho on consult, Dr Francisco Foley, F/U recommendations * CXR- Biapical pleural thickening with upper lobe granulomatous changes. Diffuse increased interstitial lung markings. * EKG 10/25/17: Atrial fibrillation with RVR * F/U Am labs, Coags Status: Acute (2) New Onset Afib Assessment and Plan: * EKG this morning showed Afib with RVR. HR under control * Monitor on telemetry * Continue Lopressor 50mg PO BID * Added Cardizem 60mg PO BID * Echo: Normal EF (3) Hypertension Assessment and Plan: * Normotensive at this time * May be elevated secondarily due to pain * Continue to monitor Status: Chronic (3) Hypercholesteremia Assessment and Plan: * Patient's daughter will try to bring in medication list. Status: Chronic (4) Osteoporosis Assessment and Plan: * Hx of Osteoporosis * Patient would benefit from DEXA Scan outpatient if she has not already obtained with primary medical doctor. * F/U Vitamin D Level 25-OH Status: Chronic (5) Prophylactic measure Assessment and Plan: * Contraindications for Chemical and Mechanical anticoagulation due to acute fracture. * Hold off at this time in anticipation of surgery. * Pepcid 20 mg PO BID Status: Acute 82 F with controlled HR ( A Fib), Controlled HTN, Normal EF and no cardiac symptoms assessed as low to intermediate risk for cardiac events for hip surgery under general anaesthesia
--- NOTE | 2017-10-26 05:33 | CARD ---
APPROVED REPORT EXAM: Two-dimensional and M-mode echocardiogram with Doppler and color Doppler. Other Information Quality : GoodRhythm : INDICATION Atrial Fibrillation Pre-Op RISK FACTORS Hypertension Hyperlipidemia 2D DIMENSIONS IVSd0.7 (0.7-1.1cm)LVDd3.9 (3.9-5.9cm) PWd0.8 (0.7-1.1cm)LVDs2.3 (2.5-4.0cm) FS (%) 42.2 %LVEF (%)73.9 (>50%) M-Mode DIMENSIONS Left Atrium (MM)3.03 (2.5-4.0cm)Aortic Root2.59 (2.2-3.7cm) Aortic Cusp Exc.1.69 (1.5-2.0cm) Mitral Valve MV E Aiimvsuh24.2cm/sMV A Ufpbivpz59.9cm/sE/A ratio0.9 TDI E/Lateral E'0.0E/Medial E'0.0 Tricuspid Valve TR Peak [id number]/sTR Peak Gr.[id number] LEFT VENTRICLE The left ventricle is normal size. There is normal left ventricular wall thickness. Left ventricle systolic function is normal. The Ejection Fraction is >70%. There is normal LV segmental wall motion. Tissue Doppler imaging reveals abnormal left ventricular diastolic dysfunction. RIGHT VENTRICLE The right ventricle is normal size. There is normal right ventricular wall thickness. The right ventricular systolic function is normal. ATRIA The left atrium size is normal. The right atrium size is normal. The interatrial septum is intact with no evidence for an atrial septal defect. AORTIC VALVE The aortic valve is normal in structure. No aortic regurgitation is present. There is no aortic valvular stenosis. There is no aortic valvular vegetation. MITRAL VALVE The mitral valve is normal in structure. There is no evidence of mitral valve prolapse. There is no mitral valve stenosis. Mitral regurgitation is mild. TRICUSPID VALVE The tricuspid valve is normal in structure. There is mild tricuspid regurgitation. Right ventricular systolic pressure is estimated at 37 mmHg. There is mild pulmonary hypertension. PULMONIC VALVE The pulmonic valve is not well visualized. There is mild pulmonic valvular regurgitation. GREAT VESSELS The aortic root is normal in size. PERICARDIAL EFFUSION There is no significant pericardial effusion. <Conclusion> Left ventricle systolic function is normal. The Ejection Fraction is >70%. Diastolic dysfunction. No aortic regurgitation is present. Mitral regurgitation is mild. There is mild tricuspid regurgitation. There is mild pulmonary hypertension. There is mild pulmonic valvular regurgitation.
[2017-10-26] MEDS: Sodium Chloride 0.9% 1,000 ML IV SCH ×2 (06:30→17:00)
--- NOTE | 2017-10-26 09:48 | CP.PCM.PN ---
<Roseanne Iverson - Last Filed: 10/26/17 16:14> Subjective - Date & Time of Evaluation Date of Evaluation: 10/26/17 Time of Evaluation: 09:46 - Subjective Subjective: Medicine Progress Note: Dr Downey Service Patient seen and examined at bedside. Per nursing no acute events overnight. Patient is NPO for surgery this morning. States that her pain is controlled and offers no complaints at this time. Denies headaches, dizziness, cp, palpitations , sob, abdominal pain, urinary symptoms, changes in bowel habits. Objective - Vital Signs/Intake and Output Vital Signs (last 24 hours): Temp Pulse Resp BP Pulse Ox 98.9 F 101 H 20 147/73 95 10/26/17 07:00 10/26/17 07:00 10/26/17 07:00 10/26/17 07:00 10/26/17 07:00 Intake and Output: 10/26/17 10/26/17 06:59 18:59 Output Total 600 Balance -600 - Medications Medications: Current Medications Diltiazem HCl (Cardizem) 60 mg PO BID [facility] Last Admin: 10/25/17 18:03 Dose: 60 mg Famotidine (Pepcid) 20 mg PO BID [facility] Last Admin: 10/25/17 18:03 Dose: 20 mg Sodium Chloride (Sodium Chloride 0.9%) 1,000 mls @ 100 mls/hr IV .Q10H [facility] Last Admin: 10/26/17 06:30 Dose: Not Given Metoprolol Tartrate (Lopressor) 50 mg PO BID [facility] Last Admin: 10/25/17 18:04 Dose: 50 mg Morphine Sulfate (Morphine) 1 mg IV Q4 PRN PRN Reason: Pain, moderate (4-7) Last Admin: 10/26/17 06:45 Dose: 1 mg Rosuvastatin Calcium (Crestor) 5 mg PO HS [facility] Last Admin: 10/25/17 22:01 Dose: 5 mg - Labs Labs: 10/25/17 06:45 10/25/17 06:45 PT 12.1 SECONDS (9.7-12.2) 10/25/17 06:45 INR 1.1 10/25/17 06:45 APTT 18 SECONDS (21-34) L 10/25/17 06:45 - Constitutional Appears: Non-toxic, No Acute Distress - Head Exam Head Exam: ATRAUMATIC, NORMAL INSPECTION, NORMOCEPHALIC - Eye Exam Eye Exam: EOMI, Normal appearance - ENT Exam ENT Exam: Mucous Membranes Moist - Neck Exam Neck Exam: Full ROM - Respiratory Exam Respiratory Exam: Clear to Ausculation Bilateral, NORMAL BREATHING PATTERN. absent: Rales, Rhonchi, Wheezes - Cardiovascular Exam Cardiovascular Exam: REGULAR RHYTHM, +S1, +S2 - GI/Abdominal Exam GI & Abdominal Exam: Soft, Normal Bowel Sounds. absent: Firm, Guarding, Rigid, Tenderness - Exam Additional comments: +mcnair - Extremities Exam Additional comments: + Pedal pulses bilaterally + Right lynn traction - Neurological Exam Neurological Exam: Alert, Awake - Psychiatric Exam Psychiatric exam: Normal Affect, Normal Mood - Skin Skin Exam: Dry, Normal Color, Warm Assessment and Plan - Assessment and Plan (Free Text) Assessment: (1) Fracture of right hip Assessment and Plan: * Xray of the Hip and Pelvis- Comminuted displaced right intratrochanteric fracture deformity. The femoral heads appear located. Sacroiliac joints appear intact. Mild constipation. No evidence of radiopaque foreign body. Refer to complete report * Hip CT showed acute intertrochanteric fracture of the right hip * Patient will be NPO, going to the OR today * Ortho on consult, Dr Francisco Foley, F/U recommendations * CXR- Biapical pleural thickening with upper lobe granulomatous changes. Diffuse increased interstitial lung markings. * EKG 10/25/17: Atrial fibrillation with RVR * F/U Am labs, Coags Status: Acute (2) New Onset Afib Assessment and Plan: * EKG yesterday showed Afib with RVR * Monitor on telemetry * Continue Lopressor 50mg PO BID * Continue Cardizem 60mg PO BID * Echo: EF 70%, Diastolic Dysfunction, Mild MR, Mild Pulm HTN, Mild Pulm Valve regurgitation * Cardiology on consult, Dr Soliman, F/U recommendations (3) Hypertension Assessment and Plan: * Normotensive at this time * May be elevated secondarily due to pain * Continue to monitor Status: Chronic (4) Hypercholesteremia Assessment and Plan: * Crestor 5mg PO HS Status: Chronic (5) Osteoporosis Assessment and Plan: * Hx of Osteoporosis * Patient would benefit from DEXA Scan outpatient if she has not already obtained with primary medical doctor. * Vitamin D Level 25-OH : 46.1 Status: Chronic (6) Prophylactic measure Assessment and Plan: * Contraindications for Chemical and Mechanical anticoagulation due to acute fracture. * Hold off at this time in anticipation of surgery. * Pepcid 20 mg PO BID Status: Acute <Nayan Downey Jr. - Last Filed: 11/10/17 18:59> Objective - Vital Signs/Intake and Output Vital Signs (last 24 hours): Temp Pulse Resp BP Pulse Ox 97.9 F 82 20 106/66 99 11/02/17 07:00 11/02/17 08:00 11/02/17 07:00 11/02/17 07:00 11/02/17 07:00 - Labs Labs: 11/02/17 06:20 11/02/17 06:20 PT 12.7 SECONDS (9.7-12.2) H 10/26/17 11:26 INR 1.1 10/26/17 11:26 APTT 26 SECONDS (21-34) D 10/26/17 11:26 Attending/Attestation - Attestation I have personally seen and examined this patient.: Yes I have fully participated in the care of the patient.: Yes I have reviewed all pertinent clinical information, including history, physical exam and plan: Yes Notes (Text): 11/10/17 18:59 Agree with resident note and plan of care
[2017-10-26 11:32] LABS: BASO % 0.2 % (0.0-2.0); EOS % 0.3 % (0.0-4.0); HEMOGLOBIN 11.4 g/dL (11.0-16.0); LYMPH # 1.7 K/uL (1.0-4.3); LYMPH % 19.4 % (20.0-40.0); MEAN CELL VOLUME 95.8 fL (81.0-99.0); MEAN CORPUSCULAR HEMOGLOBIN 32.2 pg (27.0-31.0); MEAN CORPUSCULAR HGB CONC 33.6 g/dL (33.0-37.0); MEAN PLATELET VOLUME 9.2 fL (7.2-11.7); MONO # 1.1 K/uL (0.0-0.8); MONO % 12.8 % (0.0-10.0); NEUT # 5.9 K/uL (1.8-7.0); NEUT % 67.3 % (50.0-75.0); RBC 3.55 Mil/uL (3.80-5.20); RED CELL DISTRIBUTION WIDTH 13.5 % (11.5-14.5); WHITE BLOOD COUNT 8.8 K/uL (4.8-10.8)
[2017-10-26 11:41] LABS: INR 1.1; PROTHROMBIN TIME 12.7 SECONDS (9.7-12.2)
[2017-10-26 11:53] LABS: ALBUMIN 3.3 g/dL (3.5-5.0); ALT/SGPT 27 U/L (9-52); AST/SGOT 24 U/L (14-36); BLOOD UREA NITROGEN 7 mg/dL (7-17); CALCIUM 7.9 mg/dl (8.6-10.4); GFR AFRICAN-AMERICAN > 60; GFR NON-AFRICAN AMERICAN > 60
[2017-10-26] MEDS ORDERED: ceFAZolin IV 2 gm in Dextrose 2 GM/50 ML BAG IVPB ONE (13:06)
[2017-10-26] MEDS ORDERED: Lactated Ringer's 1,000 ML IV ONE (13:10)
[2017-10-26] MEDS ORDERED: Propofol 10 mg/ml Inj (20 ML) ONE (13:13)
[2017-10-26 13:26] LABS: MAGNESIUM 1.5 mg/dL (1.6-2.3)
[2017-10-26] MEDS ORDERED: ePHEDrine 50 mg/ml Inj ONE (13:33)
[2017-10-26] MEDS ORDERED: Neostigmine Methylsulfate 3mg/3ml Syringe IV ONE (14:49)
[2017-10-26] MEDS ORDERED: HYDROmorphone 0.5 mg/0.5 ml ISec IVP PRN (15:27)
--- NOTE | 2017-10-26 15:53 | RAD ---
PROCEDURE: Intraoperative Fluoroscopy. HISTORY: RT HIP DISPLACED INTERTROCHANTER HIP FX FINDINGS: Fluoroscopic assistance was provided for open reduction internal fixation inter trochanteric fracture.. Please refer to the operative current procedure: 25.0
--- NOTE | 2017-10-26 16:21 | RAD ---
PROCEDURE: Right femur HISTORY: post right hip pinning COMPARISON: Preoperative examination 10/24/2017. TECHNIQUE: Standard protocol for this study/examination. Portable technique FINDINGS: Intramedullary rods, orthopedic hardware in satisfactory position and alignment. Avulsed lesser trochanter again identified. Postoperative findings in the soft tissues. IMPRESSION: Satisfactory postoperative status.
--- NOTE | 2017-10-26 16:23 | RAD ---
PROCEDURE: Right Hip Radiographs. HISTORY: Postoperative assessment proximal right femur fracture COMPARISON: 2017. FINDINGS: BONES: Satisfactory position alignment of major fracture fragments. Orthopedic hardware in satisfactory position. JOINTS: Normal. SOFT TISSUES: Air identified within the soft tissues consistent with recent postoperative state. OTHER FINDINGS: None. IMPRESSION: Satisfactory postoperative status.
[2017-10-26] MEDS: Magnesium Sulfate 1 gm in D5W 1 GM/100 ML BAG IVPB SCH ×2 (17:41→17:46)
--- NOTE | 2017-10-26 19:41 | PCM.SURG1 ---
Surgeon's Initial Post Op Note - Surgeon's Notes Surgeon: Obie Bolden MD Track Greaser: Bravo Luna MD Type of Anesthesia: General Endo Pre-Operative Diagnosis: Right hip displaced intertrochanteric fracture Operative Findings: Right hip displaced intertrochanteric fracture Post-Operative Diagnosis: Right hip displaced intertrochanteric fracture Operation Performed: Right hip displaced IT fx #1 closed reduction. #2 internal fixation with hip nail (TFN) Specimen/Specimens Removed: specimen = none. Implants= Synthes TFNA, 100mm helical blade, 36mm distal interlocking screw. comlications = none Estimated Blood Loss: EBL {In ML}: 50 Blood Products Given: N/A Drains Used: No Drains Post-Op Condition: Good Date of Surgery/Procedure: 10/26/17 Time of Surgery/Procedure: 15:00
[2017-10-26] MEDS: Potassium Chloride 20 mEq ER Tab PO SCH (20:42)
[2017-10-26] MEDS: WATER IVPB SCH (20:50)
[2017-10-26] MEDS: CEFAZOLIN IVPB SCH (20:50)
[2017-10-26] MEDS: DEXTROSE 5% IVPB SCH (20:50)
--- NOTE | 2017-10-27 01:06 | CP.PCM.PN ---
Subjective - Date & Time of Evaluation Date of Evaluation: 10/26/17 Time of Evaluation: 06:30 - Subjective Subjective: Patient for Hip surgery today Objective - Vital Signs/Intake and Output Vital Signs (last 24 hours): Temp Pulse Resp BP Pulse Ox 99.3 F 93 H 20 138/69 96 10/26/17 23:25 10/26/17 23:25 10/26/17 23:25 10/26/17 23:25 10/26/17 23:25 Intake and Output: 10/26/17 10/27/17 18:59 06:59 Intake Total 860 660 Output Total 1275 300 Balance -415 360 - Medications Medications: Current Medications Diltiazem HCl (Cardizem) 60 mg PO BID [facility] Last Admin: 10/26/17 20:42 Dose: 60 mg Enoxaparin Sodium (Lovenox) 40 mg SC DAILY [facility] Famotidine (Pepcid) 20 mg PO BID [facility] Last Admin: 10/26/17 20:42 Dose: 20 mg Sodium Chloride (Sodium Chloride 0.9%) 1,000 mls @ 100 mls/hr IV .Q10H [facility] Last Admin: 10/26/17 17:00 Dose: 100 mls/hr Cefazolin Sodium 2 mg/ (Dextrose) 50 mls @ 100 mls/hr IVPB Q8H [facility] Stop: 10/29/17 13:14 Last Admin: 10/26/17 20:50 Dose: 100 mls/hr Metoprolol Tartrate (Lopressor) 50 mg PO BID [facility] Last Admin: 10/26/17 20:43 Dose: Not Given Morphine Sulfate (Morphine) 1 mg IV Q4 PRN PRN Reason: Pain, moderate (4-7) Last Admin: 10/26/17 12:24 Dose: 1 mg Potassium Chloride (K-Dur 20 Meq Er Tab) 40 meq PO DAILY [facility] Last Admin: 10/26/17 20:42 Dose: 40 meq Rosuvastatin Calcium (Crestor) 5 mg PO HS [facility] Last Admin: 10/26/17 21:11 Dose: Not Given - Labs Labs: 10/26/17 11:26 10/26/17 11:26 PT 12.7 SECONDS (9.7-12.2) H 10/26/17 11:26 INR 1.1 10/26/17 11:26 APTT 26 SECONDS (21-34) D 10/26/17 11:26
[2017-10-27] MEDS: Sodium Chloride 0.9% 1,000 ML IV SCH ×4 (02:00→22:29)
[2017-10-27] MEDS: DEXTROSE 5% IVPB SCH ×3 (03:46→21:40)
[2017-10-27] MEDS: WATER IVPB SCH ×3 (03:46→21:40)
[2017-10-27] MEDS: CEFAZOLIN IVPB SCH ×3 (03:46→21:40)
[2017-10-27 06:20] LABS: BASO % 0.2 % (0.0-2.0); LYMPH # 1.4 K/uL (1.0-4.3); LYMPH % 14.3 % (20.0-40.0); MEAN CELL VOLUME 95.2 fL (81.0-99.0); MEAN CORPUSCULAR HEMOGLOBIN 32.1 pg (27.0-31.0); MEAN CORPUSCULAR HGB CONC 33.7 g/dL (33.0-37.0); MEAN PLATELET VOLUME 8.7 fL (7.2-11.7); MONO # 1.1 K/uL (0.0-0.8); MONO % 11.1 % (0.0-10.0); NEUT # 7.5 K/uL (1.8-7.0); NEUT % 74.4 % (50.0-75.0); RBC 3.12 Mil/uL (3.80-5.20); RED CELL DISTRIBUTION WIDTH 13.4 % (11.5-14.5); WHITE BLOOD COUNT 10.1 K/uL (4.8-10.8)
--- NOTE | 2017-10-27 07:10 | CP.PCM.PN ---
Subjective - Date & Time of Evaluation Date of Evaluation: 10/27/17 Time of Evaluation: 07:09 - Subjective Subjective: Medicine Progress Note: Dr Downey service Patient seen and examined at bedside. Objective - Vital Signs/Intake and Output Vital Signs (last 24 hours): Temp Pulse Resp BP Pulse Ox 99.1 F 93 H 20 127/71 96 10/27/17 04:51 10/27/17 04:05 10/27/17 04:05 10/27/17 04:05 10/27/17 04:05 Intake and Output: 10/27/17 10/27/17 06:59 18:59 Intake Total 1560 Output Total 750 Balance 810 - Medications Medications: Current Medications Diltiazem HCl (Cardizem) 60 mg PO BID [facility] Last Admin: 10/26/17 20:42 Dose: 60 mg Enoxaparin Sodium (Lovenox) 40 mg SC DAILY [facility] Famotidine (Pepcid) 20 mg PO BID [facility] Last Admin: 10/26/17 20:42 Dose: 20 mg Sodium Chloride (Sodium Chloride 0.9%) 1,000 mls @ 100 mls/hr IV .Q10H [facility] Last Admin: 10/27/17 02:00 Dose: Not Given Cefazolin Sodium 2 mg/ (Dextrose) 50 mls @ 100 mls/hr IVPB Q8H [facility] Stop: 10/29/17 13:14 Last Admin: 10/27/17 03:46 Dose: 100 mls/hr Metoprolol Tartrate (Lopressor) 50 mg PO BID [facility] Last Admin: 10/26/17 20:43 Dose: Not Given Morphine Sulfate (Morphine) 1 mg IV Q4 PRN PRN Reason: Pain, moderate (4-7) Last Admin: 10/27/17 03:51 Dose: 1 mg Potassium Chloride (K-Dur 20 Meq Er Tab) 40 meq PO DAILY [facility] Last Admin: 10/26/17 20:42 Dose: 40 meq Rosuvastatin Calcium (Crestor) 5 mg PO HS [facility] Last Admin: 10/26/17 21:11 Dose: Not Given - Labs Labs: 10/27/17 06:13 10/26/17 11:26 PT 12.7 SECONDS (9.7-12.2) H 10/26/17 11:26 INR 1.1 10/26/17 11:26 APTT 26 SECONDS (21-34) D 10/26/17 11:26
[2017-10-27 08:29] LABS: ALBUMIN 2.8 g/dL (3.5-5.0); ALT/SGPT 23 U/L (9-52); AST/SGOT 22 U/L (14-36); BLOOD UREA NITROGEN 7 mg/dL (7-17); CALCIUM 7.4 mg/dl (8.6-10.4); GFR AFRICAN-AMERICAN > 60; GFR NON-AFRICAN AMERICAN > 60; MAGNESIUM 1.7 mg/dL (1.6-2.3)
[2017-10-27] MEDS: Potassium Chloride 20 mEq ER Tab PO SCH (09:15)
[2017-10-27] MEDS: Enoxaparin 40 mg Syringe SC SCH (09:20)
[2017-10-27] MEDS: Benzocaine/Menthol (Cepacol) Lozenge MT SCH ×5 (10:40→21:41)
--- NOTE | 2017-10-27 11:47 | CP.PCM.PN ---
Subjective - Date & Time of Evaluation Date of Evaluation: 10/27/17 Time of Evaluation: 11:43 - Subjective Subjective: Patient complaining of a lot of pain in her right hip and thigh. Denies numbness /tingling. Poor appetite. Denies nausea/vomiting. Objective - Vital Signs/Intake and Output Vital Signs (last 24 hours): Temp Pulse Resp BP Pulse Ox 99.2 F 96 H 18 136/79 98 10/27/17 09:17 10/27/17 09:17 10/27/17 09:17 10/27/17 09:17 10/27/17 09:17 Intake and Output: 10/27/17 10/27/17 06:59 18:59 Intake Total 1560 Output Total 750 Balance 810 - Medications Medications: Current Medications Benzocaine/Menthol (Cepacol Sore Throat) [address] [facility] Last Admin: 10/27/17 10:40 Dose: 1 tiffany Diltiazem HCl (Cardizem) [address] [facility] Last Admin: 10/27/17 09:15 Dose: 60 mg Enoxaparin Sodium (Lovenox) [address] [facility] Last Admin: 10/27/17 09:20 Dose: 40 mg Famotidine (Pepcid) [address] [facility] Last Admin: 10/27/17 09:15 Dose: 20 mg Sodium Chloride (Sodium Chloride 0.9%) 1,000 mls @ 100 mls/hr IV .Q10H [facility] Last Admin: 10/27/17 02:00 Dose: Not Given Cefazolin Sodium 2 mg/ (Dextrose) 50 mls @ 100 mls/hr IVPB Q8H [facility] Stop: 10/29/17 13:14 Last Admin: 10/27/17 03:46 Dose: 100 mls/hr Metoprolol Tartrate (Lopressor) [address] [facility] Last Admin: 10/27/17 11:01 Dose: 50 mg Morphine Sulfate (Morphine) 1 mg IV Q4 PRN PRN Reason: Pain, moderate (4-7) Last Admin: 10/27/17 09:16 Dose: 1 mg Potassium Chloride (K-Dur 20 Meq Er Tab) [address] [facility] Last Admin: 10/27/17 09:15 Dose: 40 meq Rosuvastatin Calcium (Crestor) 5 mg PO HS [facility] Last Admin: 10/26/17 21:11 Dose: Not Given - Labs Labs: 10/27/17 06:13 10/27/17 06:13 PT 12.7 SECONDS (9.7-12.2) H 10/26/17 11:26 INR 1.1 10/26/17 11:26 APTT 26 SECONDS (21-34) D 10/26/17 11:26 - Extremities Exam Additional comments: Right hip: incision dry, dressing intact. thigh swollen. +ROM ankle/toes, sensation intact calves soft NT neg homans +DP/PT pulses +venodynes Assessment and Plan (1) Closed intertrochanteric fracture of right femur Assessment & Plan: POD#1 s/p IM nailing -PT/OT vte proph d/c planning orthopedically stable d/w Dr. Bolden, agrees with above Status: Acute
--- NOTE | 2017-10-27 16:35 | CP.PCM.PN ---
<Roseanne Iverson - Last Filed: 10/27/17 18:18> Subjective - Date & Time of Evaluation Date of Evaluation: 10/27/17 Time of Evaluation: 16:32 - Subjective Subjective: Medicine Progress Note: Dr Downey Service Patient seen and examined at bedside. Per nursing no acute events overnight. Patient is having 9/10 pain. Patient also refusing to participate with physical therapy. Patient states that she wants to sit up in bed. Appetite is low. Denies headaches, dizziness, cp, palpitations, sob, abdominal pain, urinary symptoms, changes in bowel habits. Objective - Vital Signs/Intake and Output Vital Signs (last 24 hours): Temp Pulse Resp BP Pulse Ox 99.2 F 75 18 136/79 98 10/27/17 09:17 10/27/17 15:57 10/27/17 09:17 10/27/17 09:17 10/27/17 09:17 Intake and Output: 10/27/17 10/27/17 06:59 18:59 Intake Total 1560 Output Total 750 300 Balance 810 -300 - Medications Medications: Current Medications Benzocaine/Menthol (Cepacol Sore Throat) 1 tiffany MT Q3 [facility] Last Admin: 10/27/17 13:01 Dose: 1 tiffany Diltiazem HCl (Cardizem) 60 mg PO BID [facility] Last Admin: 10/27/17 09:15 Dose: 60 mg Enoxaparin Sodium (Lovenox) 40 mg SC DAILY [facility] Last Admin: 10/27/17 09:20 Dose: 40 mg Famotidine (Pepcid) 20 mg PO BID [facility] Last Admin: 10/27/17 09:15 Dose: 20 mg Sodium Chloride (Sodium Chloride 0.9%) 1,000 mls @ 100 mls/hr IV .Q10H [facility] Last Admin: 10/27/17 12:14 Dose: Not Given Cefazolin Sodium 2 mg/ (Dextrose) 50 mls @ 100 mls/hr IVPB Q8H [facility] Stop: 10/29/17 13:14 Last Admin: 10/27/17 13:00 Dose: 100 mls/hr Metoprolol Tartrate (Lopressor) 50 mg PO BID [facility] Last Admin: 10/27/17 11:01 Dose: 50 mg Morphine Sulfate (Morphine) 1 mg IV Q4 PRN PRN Reason: Pain, moderate (4-7) Last Admin: 10/27/17 09:16 Dose: 1 mg Potassium Chloride (K-Dur 20 Meq Er Tab) 40 meq PO DAILY [facility] Last Admin: 10/27/17 09:15 Dose: 40 meq Rosuvastatin Calcium (Crestor) 5 mg PO HS [facility] Last Admin: 10/26/17 21:11 Dose: Not Given - Labs Labs: 10/27/17 06:13 10/27/17 06:13 PT 12.7 SECONDS (9.7-12.2) H 10/26/17 11:26 INR 1.1 10/26/17 11:26 APTT 26 SECONDS (21-34) D 10/26/17 11:26 - Constitutional Appears: Non-toxic, No Acute Distress - Head Exam Head Exam: ATRAUMATIC, NORMAL INSPECTION, NORMOCEPHALIC - Eye Exam Eye Exam: EOMI, Normal appearance - ENT Exam ENT Exam: Mucous Membranes Moist - Neck Exam Neck Exam: Full ROM - Respiratory Exam Respiratory Exam: Clear to Ausculation Bilateral, NORMAL BREATHING PATTERN. absent: Rales, Rhonchi, Wheezes - Cardiovascular Exam Cardiovascular Exam: REGULAR RHYTHM, +S1, +S2. absent: Irregular Rhythm, Murmur - GI/Abdominal Exam GI & Abdominal Exam: Soft, Normal Bowel Sounds. absent: Guarding, Rigid, Tenderness - Exam Additional comments: Fink in draining yellow urine - Extremities Exam Additional comments: Right hip: incision dry, dressing intact. thigh swollen. +ROM ankle/toes, sensation intact calves soft NT neg homans +DP/PT pulses +venodynes - Neurological Exam Neurological Exam: Alert, Awake, Oriented x3 - Psychiatric Exam Psychiatric exam: Normal Affect, Normal Mood - Skin Skin Exam: Dry, Normal Color, Warm Assessment and Plan - Assessment and Plan (Free Text) Assessment: (1) Fracture of right hip Assessment and Plan: * Xray of the Hip and Pelvis- Comminuted displaced right intratrochanteric fracture deformity. The femoral heads appear located. Sacroiliac joints appear intact. Mild constipation. No evidence of radiopaque foreign body. Refer to complete report * Hip CT showed acute intertrochanteric fracture of the right hip * Ortho on consult, Dr Francisco Foley, F/U recommendations * CXR- Biapical pleural thickening with upper lobe granulomatous changes. Diffuse increased interstitial lung markings. * EKG 1/9/18: Atrial fibrillation with RVR * Patient is S/P Right hip displaced IT fx closed reduction, internal fixation with hip nail (TFN) POD#1 * Morphine 1mg Q4H prn pain * Cefazolin 2mg Q8H * PT/OT on board Status: Acute (2) New Onset Paroxysmal Afib Assessment and Plan: * EKG showed Afib with RVR * Monitor on telemetry * Patient is currently in sinus rhythma * Continue Lopressor 50mg PO BID * Continue Cardizem 60mg PO BID * Echo: EF 70%, Diastolic Dysfunction, Mild MR, Mild Pulm HTN, Mild Pulm Valve regurgitation * Cardiology on consult, Dr Soliman, F/U recommendations (3) Hypertension Assessment and Plan: * Normotensive at this time * May be elevated secondarily due to pain * Continue to monitor Status: Chronic (4) Hypercholesteremia Assessment and Plan: * Crestor 5mg PO HS Status: Chronic (5) Osteoporosis Assessment and Plan: * Hx of Osteoporosis * Patient would benefit from DEXA Scan outpatient if she has not already obtained with primary medical doctor. * Vitamin D Level 25-OH : 46.1 Status: Chronic (6) Prophylactic measure Assessment and Plan: * Lovenox 40mg SC daily * SCDs * Pepcid 20 mg PO BID Status: Acute <Nayan Downey Jr. - Last Filed: 11/10/17 19:02> Objective - Vital Signs/Intake and Output Vital Signs (last 24 hours): Temp Pulse Resp BP Pulse Ox 97.9 F 82 20 106/66 99 11/02/17 07:00 11/02/17 08:00 11/02/17 07:00 11/02/17 07:00 11/02/17 07:00 - Labs Labs: 11/02/17 06:20 11/02/17 06:20 PT 12.7 SECONDS (9.7-12.2) H 10/26/17 11:26 INR 1.1 10/26/17 11:26 APTT 26 SECONDS (21-34) D 10/26/17 11:26 Attending/Attestation - Attestation I have personally seen and examined this patient.: Yes I have fully participated in the care of the patient.: Yes I have reviewed all pertinent clinical information, including history, physical exam and plan: Yes Notes (Text): 11/10/17 19:02 Agree with resident note and plan of care
[2017-10-28] MEDS: Benzocaine/Menthol (Cepacol) Lozenge MT SCH ×7 (00:26→21:26)
[2017-10-28] MEDS: DEXTROSE 5% IVPB SCH ×3 (04:45→21:27)
[2017-10-28] MEDS: WATER IVPB SCH ×3 (04:45→21:27)
[2017-10-28] MEDS: CEFAZOLIN IVPB SCH ×3 (04:45→21:27)
[2017-10-28 07:21] LABS: BASO % 0.4 % (0.0-2.0); EOS % 0.4 % (0.0-4.0); LYMPH # 1.5 K/uL (1.0-4.3); LYMPH % 16.7 % (20.0-40.0); MEAN CELL VOLUME 95.8 fL (81.0-99.0); MEAN CORPUSCULAR HEMOGLOBIN 32.5 pg (27.0-31.0); MEAN PLATELET VOLUME 8.7 fL (7.2-11.7); MONO # 1.1 K/uL (0.0-0.8); MONO % 11.8 % (0.0-10.0); NEUT # 6.3 K/uL (1.8-7.0); NEUT % 70.7 % (50.0-75.0); RBC 2.77 Mil/uL (3.80-5.20); RED CELL DISTRIBUTION WIDTH 13.3 % (11.5-14.5); WHITE BLOOD COUNT 8.9 K/uL (4.8-10.8)
[2017-10-28 08:21] LABS: ALB/GLOB RATIO 0.9 (1.0-2.1); ALBUMIN 2.6 g/dL (3.5-5.0); ALT/SGPT 27 U/L (9-52); AST/SGOT 25 U/L (14-36); BLOOD UREA NITROGEN 9 mg/dL (7-17); CALCIUM 7.6 mg/dl (8.6-10.4); GFR AFRICAN-AMERICAN > 60; GFR NON-AFRICAN AMERICAN > 60; MAGNESIUM 1.7 mg/dL (1.6-2.3)
--- NOTE | 2017-10-28 09:19 | CP.PCM.PN ---
<Roseanne Iverson - Last Filed: 10/28/17 16:58> Subjective - Date & Time of Evaluation Date of Evaluation: 10/28/17 Time of Evaluation: 09:18 - Subjective Subjective: Medicine Progress Note: Dr Downey Service Patient seen and examined at bedside. Per nursing no acute events overnight. Patient is doing well, pain is controlled. Patient still having low appetite. Resting comfortably. States that she feels constipated. Denies headaches, dizziness, cp, palpitations, sob, abdominal pain, urinary symptoms. Objective - Vital Signs/Intake and Output Vital Signs (last 24 hours): Temp Pulse Resp BP Pulse Ox 99.0 F 99 H 20 120/77 96 10/28/17 08:50 10/28/17 08:50 10/28/17 08:50 10/28/17 08:50 10/28/17 08:50 Intake and Output: 10/28/17 10/28/17 06:59 18:59 Intake Total 750 Output Total 1200 Balance -450 - Medications Medications: Current Medications Benzocaine/Menthol (Cepacol Sore Throat) 1 tiffany MT Q3 [facility] Last Admin: 10/28/17 06:00 Dose: 1 tifafny Diltiazem HCl (Cardizem) 60 mg PO BID [facility] Last Admin: 10/27/17 17:54 Dose: 60 mg Enoxaparin Sodium (Lovenox) 40 mg SC DAILY [facility] Last Admin: 10/27/17 09:20 Dose: 40 mg Famotidine (Pepcid) 20 mg PO BID [facility] Last Admin: 10/27/17 18:00 Dose: 20 mg Cefazolin Sodium 2 mg/ (Dextrose) 50 mls @ 100 mls/hr IVPB Q8H [facility] Stop: 10/29/17 13:14 Last Admin: 10/28/17 04:45 Dose: 100 mls/hr Metoprolol Tartrate (Lopressor) 50 mg PO BID [facility] Last Admin: 10/27/17 17:54 Dose: 50 mg Morphine Sulfate (Morphine) 1 mg IV Q4 PRN PRN Reason: Pain, moderate (4-7) Last Admin: 10/28/17 05:55 Dose: 1 mg Potassium Chloride (K-Dur 20 Meq Er Tab) 40 meq PO DAILY [facility] Last Admin: 10/27/17 09:15 Dose: 40 meq Rosuvastatin Calcium (Crestor) 5 mg PO HS [facility] Last Admin: 10/27/17 21:40 Dose: 5 mg - Labs Labs: 10/28/17 07:01 10/28/17 07:01 PT 12.7 SECONDS (9.7-12.2) H 10/26/17 11:26 INR 1.1 10/26/17 11:26 APTT 26 SECONDS (21-34) D 10/26/17 11:26 - Additional Findings Additional findings: - Constitutional Appears: Non-toxic, No Acute Distress - Head Exam Head Exam: ATRAUMATIC, NORMAL INSPECTION, NORMOCEPHALIC - Eye Exam Eye Exam: EOMI, Normal appearance - ENT Exam ENT Exam: Mucous Membranes Moist - Neck Exam Neck Exam: Full ROM - Respiratory Exam Respiratory Exam: Clear to Ausculation Bilateral, NORMAL BREATHING PATTERN. absent: Rales, Rhonchi, Wheezes - Cardiovascular Exam Cardiovascular Exam: REGULAR RHYTHM, +S1, +S2. absent: Irregular Rhythm, Murmur - GI/Abdominal Exam GI & Abdominal Exam: Soft, Normal Bowel Sounds. absent: Guarding, Rigid, Tenderness - Exam Additional comments: Fink in draining yellow urine - Extremities Exam Additional comments: Right hip: incision dry, dressing intact. thigh swollen. +ROM ankle/toes, sensation intact calves soft NT neg homans +DP/PT pulses +venodynes - Neurological Exam Neurological Exam: Alert, Awake, Oriented x3 - Psychiatric Exam Psychiatric exam: Normal Affect, Normal Mood - Skin Skin Exam: Dry, Normal Color, Warm Assessment and Plan - Assessment and Plan (Free Text) Assessment: (1) Fracture of right hip Assessment and Plan: * Xray of the Hip and Pelvis- Comminuted displaced right intratrochanteric fracture deformity. The femoral heads appear located. Sacroiliac joints appear intact. Mild constipation. No evidence of radiopaque foreign body. Refer to complete report * Hip CT showed acute intertrochanteric fracture of the right hip * Ortho on consult, Dr Francisco Foley, F/U recommendations * CXR- Biapical pleural thickening with upper lobe granulomatous changes. Diffuse increased interstitial lung markings. * EKG 10/25/17: Atrial fibrillation with RVR * Patient is S/P Right hip displaced IT fx closed reduction, internal fixation with hip nail (TFN) POD#1 * Morphine 1mg Q4H prn pain * Cefazolin 2mg Q8H * PT/OT on board * Added Ensure TID for diet supplementation Status: Acute (2) New Onset Paroxysmal Afib Assessment and Plan: * EKG showed Afib with RVR * Monitor on telemetry * Patient is currently in sinus rhythma * Continue Lopressor 50mg PO BID * Continue Cardizem 60mg PO BID * Eliquis 5mg PO BID to start tomorrow * Echo: EF 70%, Diastolic Dysfunction, Mild MR, Mild Pulm HTN, Mild Pulm Valve regurgitation * Cardiology on consult, Dr Soliman, F/U recommendations (3) Hypertension Assessment and Plan: * Normotensive at this time * May be elevated secondarily due to pain * Continue to monitor Status: Chronic (4) Hypercholesteremia Assessment and Plan: * Crestor 5mg PO HS Status: Chronic (5) Osteoporosis Assessment and Plan: * Hx of Osteoporosis * Patient would benefit from DEXA Scan outpatient if she has not already obtained with primary medical doctor. * Vitamin D Level 25-OH : 46.1 Status: Chronic (6) Prophylactic measure Assessment and Plan: * Eliquis 5mg BID to start tomorrow * SCDs * Pepcid 20 mg PO BID Status: Acute <Nayan Downey Jr. - Last Filed: 11/10/17 19:02> Objective - Vital Signs/Intake and Output Vital Signs (last 24 hours): Temp Pulse Resp BP Pulse Ox 97.9 F 82 20 106/66 99 11/02/17 07:00 11/02/17 08:00 11/02/17 07:00 11/02/17 07:00 11/02/17 07:00 - Labs Labs: 11/02/17 06:20 11/02/17 06:20 PT 12.7 SECONDS (9.7-12.2) H 10/26/17 11:26 INR 1.1 10/26/17 11:26 APTT 26 SECONDS (21-34) D 10/26/17 11:26 Attending/Attestation - Attestation I have personally seen and examined this patient.: Yes I have fully participated in the care of the patient.: Yes I have reviewed all pertinent clinical information, including history, physical exam and plan: Yes Notes (Text): 11/10/17 19:02 Agree with resident note and plan of care
[2017-10-28] MEDS: Potassium Chloride 20 mEq ER Tab PO SCH (09:35)
[2017-10-28] MEDS: Enoxaparin 40 mg Syringe SC SCH (09:35)
[2017-10-28] MEDS: Bisacodyl 5mg EC Tab PO SCH (11:08)
[2017-10-29] MEDS: Benzocaine/Menthol (Cepacol) Lozenge MT SCH ×8 (01:37→22:21)
[2017-10-29] MEDS: CEFAZOLIN IVPB SCH ×2 (04:17→11:50)
[2017-10-29] MEDS: DEXTROSE 5% IVPB SCH ×2 (04:17→11:50)
[2017-10-29] MEDS: WATER IVPB SCH ×2 (04:17→11:50)
[2017-10-29 07:20] LABS: BASO % 0.3 % (0.0-2.0); EOS # 0.1 K/uL (0.0-0.7); EOS % 1.1 % (0.0-4.0); HEMOGLOBIN 8.6 g/dL (11.0-16.0); LYMPH # 1.6 K/uL (1.0-4.3); LYMPH % 20.1 % (20.0-40.0); MEAN CELL VOLUME 94.3 fL (81.0-99.0); MEAN PLATELET VOLUME 8.3 fL (7.2-11.7); MONO # 0.9 K/uL (0.0-0.8); MONO % 11.3 % (0.0-10.0); NEUT # 5.3 K/uL (1.8-7.0); NEUT % 67.2 % (50.0-75.0); NRBC % 0.1 % (0.0-2.0); RBC 2.61 Mil/uL (3.80-5.20); RED CELL DISTRIBUTION WIDTH 13.2 % (11.5-14.5); WHITE BLOOD COUNT 7.9 K/uL (4.8-10.8)
[2017-10-29 07:58] LABS: ALBUMIN 2.8 g/dL (3.5-5.0); ALT/SGPT 30 U/L (9-52); AST/SGOT 29 U/L (14-36); BLOOD UREA NITROGEN 13 mg/dL (7-17); CALCIUM 8.1 mg/dl (8.6-10.4); GFR AFRICAN-AMERICAN > 60; GFR NON-AFRICAN AMERICAN > 60; MAGNESIUM 1.8 mg/dL (1.6-2.3)
[2017-10-29] MEDS: Bisacodyl 5mg EC Tab PO SCH (09:30)
[2017-10-29] MEDS: Potassium Chloride 20 mEq ER Tab PO SCH (09:30)
--- NOTE | 2017-10-29 16:31 | CP.PCM.PN ---
<Esha Treviño DO - Last Filed: 10/29/17 16:33> Subjective - Date & Time of Evaluation Date of Evaluation: 10/29/17 Time of Evaluation: 10:00 - Subjective Subjective: PGY2 medicine progress note for Dr. Downey's service Patient seen and examined. Patient still has poor appetite. She states she has not had a bowel movement. Patient admits to feeling weak. Discussed with patient while on rounds that her blood counts are low and she is agreeable for blood transfusion. Objective - Vital Signs/Intake and Output Vital Signs (last 24 hours): Temp Pulse Resp BP Pulse Ox 98.8 F 97 H 20 120/80 99 10/29/17 15:06 10/29/17 15:06 10/29/17 15:06 10/29/17 15:06 10/29/17 15:06 Intake and Output: 10/29/17 10/29/17 06:59 18:59 Intake Total 400 Output Total 400 Balance 0 - Medications Medications: Current Medications Apixaban (Eliquis) 5 mg PO BID [facility] Last Admin: 10/29/17 09:30 Dose: 5 mg Benzocaine/Menthol (Cepacol Sore Throat) 1 tiffany MT Q3 [facility] Last Admin: 10/29/17 16:14 Dose: 1 tiffany Bisacodyl (Dulcolax) 10 mg PO DAILY [facility] Last Admin: 10/29/17 09:30 Dose: 10 mg Diltiazem HCl (Cardizem) 60 mg PO BID [facility] Last Admin: 10/29/17 09:29 Dose: Not Given Docusate Sodium (Colace) 100 mg PO BID [facility] Last Admin: 10/29/17 09:30 Dose: 100 mg Famotidine (Pepcid) 20 mg PO BID [facility] Last Admin: 10/29/17 09:31 Dose: 20 mg Megestrol Acetate (Megace) 400 mg PO DAILY [facility] Metoprolol Tartrate (Lopressor) 50 mg PO BID [facility] Last Admin: 10/29/17 09:30 Dose: Not Given Morphine Sulfate (Morphine) 1 mg IV Q4 PRN PRN Reason: Pain, moderate (4-7) Last Admin: 10/28/17 15:52 Dose: 1 mg Potassium Chloride (K-Dur 20 Meq Er Tab) 40 meq PO DAILY [facility] Last Admin: 10/29/17 09:30 Dose: 40 meq Rosuvastatin Calcium (Crestor) 5 mg PO HS [facility] Last Admin: 10/28/17 21:27 Dose: 5 mg - Labs Labs: 10/29/17 07:08 10/29/17 07:08 PT 12.7 SECONDS (9.7-12.2) H 10/26/17 11:26 INR 1.1 10/26/17 11:26 APTT 26 SECONDS (21-34) D 10/26/17 11:26 - Constitutional Appears: No Acute Distress - Head Exam Head Exam: ATRAUMATIC, NORMOCEPHALIC - Eye Exam Eye Exam: EOMI - ENT Exam ENT Exam: Mucous Membranes Dry - Respiratory Exam Respiratory Exam: Clear to Ausculation Bilateral - Cardiovascular Exam Cardiovascular Exam: +S1, +S2 - GI/Abdominal Exam GI & Abdominal Exam: Soft, Normal Bowel Sounds. absent: Tenderness - Extremities Exam Extremities Exam: absent: Pedal Edema Additional comments: right hip with intact dressing, slightly swollen SCDs present b/l - Neurological Exam Neurological Exam: Alert, Awake - Skin Skin Exam: Warm Assessment and Plan - Assessment and Plan (Free Text) Assessment: (1) Fracture of right hip Assessment and Plan: - POD#3 Right hip displaced IT fx closed reduction, internal fixation with hip nail -Xray of the Hip and Pelvis- Comminuted displaced right intratrochanteric fracture deformity. The femoral heads appear located. Sacroiliac joints appear intact. Mild constipation. No evidence of radiopaque foreign body. Refer to complete report -Hip CT showed acute intertrochanteric fracture of the right hip -Ortho on consult, Dr Francisco Foley, F/U recommendations * Morphine 1mg Q4H prn pain * Cefazolin 2mg Q8H * PT/OT on board Status: Acute (2) Anemia Assessment and Plan: will check stool OB patient consented for blood transfusion 1 unit PRBC (3) Poor appetite Assessment and Plan: starting Ensure starting megace daily (4) New Onset Paroxysmal Afib Assessment and Plan: * EKG showed Afib with RVR * Monitor on telemetry * Patient is currently in sinus rhythma * Continue Lopressor 50mg PO BID * Continue Cardizem 60mg PO BID * Eliquis 5mg PO BID * Echo: EF 70%, Diastolic Dysfunction, Mild MR, Mild Pulm HTN, Mild Pulm Valve regurgitation * Cardiology on consult, Dr Soliman, F/U recommendations (5) Hypertension Assessment and Plan: * Normotensive at this time * May be elevated secondarily due to pain * Continue to monitor Status: Chronic (6) Hypercholesteremia Assessment and Plan: * Crestor 5mg PO HS Status: Chronic (7) Osteoporosis Assessment and Plan: * Hx of Osteoporosis * Patient would benefit from DEXA Scan outpatient if she has not already obtained with primary medical doctor. * Vitamin D Level 25-OH : 46.1 Status: Chronic (8) Prophylactic measure Assessment and Plan: * Eliquis 5mg BID * SCDs * Added Ensure TID for diet supplementation * Pepcid 20 mg PO BID Status: Acute All management as per Dr. Downey <Nayan Downey Jr. - Last Filed: 11/10/17 19:06> Objective - Vital Signs/Intake and Output Vital Signs (last 24 hours): Temp Pulse Resp BP Pulse Ox 97.9 F 82 20 106/66 99 11/02/17 07:00 11/02/17 08:00 11/02/17 07:00 11/02/17 07:00 11/02/17 07:00 - Labs Labs: 11/02/17 06:20 11/02/17 06:20 PT 12.7 SECONDS (9.7-12.2) H 10/26/17 11:26 INR 1.1 10/26/17 11:26 APTT 26 SECONDS (21-34) D 10/26/17 11:26 Attending/Attestation - Attestation I have personally seen and examined this patient.: Yes I have fully participated in the care of the patient.: Yes I have reviewed all pertinent clinical information, including history, physical exam and plan: Yes Notes (Text): 11/10/17 19:06 Agree with resident note and plan of care
--- NOTE | 2017-10-29 21:18 | CP.PCM.PN ---
Subjective - Date & Time of Evaluation Date of Evaluation: 10/27/17 Time of Evaluation: 10:20 - Subjective Subjective: Patient seen and evaluated denies chest pain and dyspnea Patient for Hip surgery today No cardiac events noted Objective - Vital Signs/Intake and Output Vital Signs (last 24 hours): Temp Pulse Resp BP Pulse Ox 98.8 F 97 H 20 120/80 99 10/29/17 15:06 10/29/17 15:06 10/29/17 15:06 10/29/17 15:06 10/29/17 15:06 - Medications Medications: Current Medications Apixaban (Eliquis) 5 mg PO BID [facility] Last Admin: 10/29/17 17:18 Dose: 5 mg Benzocaine/Menthol (Cepacol Sore Throat) 1 tiffany MT Q3 [facility] Last Admin: 10/29/17 20:00 Dose: 1 tiffany Bisacodyl (Dulcolax) 10 mg PO DAILY [facility] Last Admin: 10/29/17 09:30 Dose: 10 mg Diltiazem HCl (Cardizem) 60 mg PO BID [facility] Last Admin: 10/29/17 17:18 Dose: 60 mg Docusate Sodium (Colace) 100 mg PO BID [facility] Last Admin: 10/29/17 17:18 Dose: 100 mg Famotidine (Pepcid) 20 mg PO BID [facility] Last Admin: 10/29/17 17:18 Dose: 20 mg Megestrol Acetate (Megace) 400 mg PO DAILY [facility] Metoprolol Tartrate (Lopressor) 50 mg PO BID [facility] Last Admin: 10/29/17 17:42 Dose: 50 mg Morphine Sulfate (Morphine) 1 mg IV Q4 PRN PRN Reason: Pain, moderate (4-7) Last Admin: 10/28/17 15:52 Dose: 1 mg Polyethylene Glycol (Miralax) 17 gm PO DAILY [facility] Potassium Chloride (K-Dur 20 Meq Er Tab) 40 meq PO DAILY [facility] Last Admin: 10/29/17 09:30 Dose: 40 meq Rosuvastatin Calcium (Crestor) 5 mg PO HS [facility] Last Admin: 10/28/17 21:27 Dose: 5 mg - Labs Labs: 10/29/17 07:08 10/29/17 07:08 PT 12.7 SECONDS (9.7-12.2) H 10/26/17 11:26 INR 1.1 10/26/17 11:26 APTT 26 SECONDS (21-34) D 10/26/17 11:26
--- NOTE | 2017-10-29 21:19 | CP.PCM.PN ---
Subjective - Date & Time of Evaluation Date of Evaluation: 10/28/17 Time of Evaluation: 11:35 - Subjective Subjective: Patient seen and evaluated denies chest pain and dyspnea Patient for Hip surgery today No cardiac events noted Objective - Vital Signs/Intake and Output Vital Signs (last 24 hours): Temp Pulse Resp BP Pulse Ox 98.8 F 97 H 20 120/80 99 10/29/17 15:06 10/29/17 15:06 10/29/17 15:06 10/29/17 15:06 10/29/17 15:06 - Medications Medications: Current Medications Apixaban (Eliquis) 5 mg PO BID [facility] Last Admin: 10/29/17 17:18 Dose: 5 mg Benzocaine/Menthol (Cepacol Sore Throat) 1 tiffany MT Q3 [facility] Last Admin: 10/29/17 20:00 Dose: 1 tiffany Bisacodyl (Dulcolax) 10 mg PO DAILY [facility] Last Admin: 10/29/17 09:30 Dose: 10 mg Diltiazem HCl (Cardizem) 60 mg PO BID [facility] Last Admin: 10/29/17 17:18 Dose: 60 mg Docusate Sodium (Colace) 100 mg PO BID [facility] Last Admin: 10/29/17 17:18 Dose: 100 mg Famotidine (Pepcid) 20 mg PO BID [facility] Last Admin: 10/29/17 17:18 Dose: 20 mg Megestrol Acetate (Megace) 400 mg PO DAILY [facility] Metoprolol Tartrate (Lopressor) 50 mg PO BID [facility] Last Admin: 10/29/17 17:42 Dose: 50 mg Morphine Sulfate (Morphine) 1 mg IV Q4 PRN PRN Reason: Pain, moderate (4-7) Last Admin: 10/28/17 15:52 Dose: 1 mg Polyethylene Glycol (Miralax) 17 gm PO DAILY [facility] Potassium Chloride (K-Dur 20 Meq Er Tab) 40 meq PO DAILY [facility] Last Admin: 10/29/17 09:30 Dose: 40 meq Rosuvastatin Calcium (Crestor) 5 mg PO HS [facility] Last Admin: 10/28/17 21:27 Dose: 5 mg - Labs Labs: 10/29/17 07:08 10/29/17 07:08 PT 12.7 SECONDS (9.7-12.2) H 10/26/17 11:26 INR 1.1 10/26/17 11:26 APTT 26 SECONDS (21-34) D 10/26/17 11:26
[2017-10-30] MEDS: Benzocaine/Menthol (Cepacol) Lozenge MT SCH ×8 (00:52→21:57)
[2017-10-30 08:12] LABS: BASO % 0.3 % (0.0-2.0); EOS # 0.2 K/uL (0.0-0.7); EOS % 2.9 % (0.0-4.0); LYMPH # 1.6 K/uL (1.0-4.3); LYMPH % 21.7 % (20.0-40.0); MEAN CORPUSCULAR HEMOGLOBIN 32.2 pg (27.0-31.0); MEAN PLATELET VOLUME 8.3 fL (7.2-11.7); MONO # 0.8 K/uL (0.0-0.8); MONO % 10.7 % (0.0-10.0); NEUT # 4.7 K/uL (1.8-7.0); NEUT % 64.4 % (50.0-75.0); RBC 3.45 Mil/uL (3.80-5.20); RED CELL DISTRIBUTION WIDTH 14.2 % (11.5-14.5); WHITE BLOOD COUNT 7.2 K/uL (4.8-10.8)
[2017-10-30 08:15] LABS: HEMOGLOBIN 11.1 g/dL (11.0-16.0); MEAN CELL VOLUME 92.2 fL (81.0-99.0)
[2017-10-30 08:27] LABS: ALBUMIN 3.1 g/dL (3.5-5.0); ALT/SGPT 29 U/L (9-52); AST/SGOT 28 U/L (14-36); BLOOD UREA NITROGEN 13 mg/dL (7-17); CALCIUM 8.6 mg/dl (8.6-10.4); GFR AFRICAN-AMERICAN > 60; GFR NON-AFRICAN AMERICAN > 60; MAGNESIUM 1.7 mg/dL (1.6-2.3)
[2017-10-30] MEDS: Bisacodyl 5mg EC Tab PO SCH (09:25)
[2017-10-30] MEDS: Megestrol Acetate 40 mg/ml Cup PO SCH (09:26)
[2017-10-30] MEDS: Potassium Chloride 20 mEq ER Tab PO SCH (09:26)
[2017-10-30] MEDS: POLYETHYLENE GLYCOL 3350 17 GM/Dose PACKET PO SCH (09:26)
--- NOTE | 2017-10-30 10:12 | CP.PCM.PN ---
<Esha Treviño DO - Last Filed: 10/30/17 14:10> Subjective - Date & Time of Evaluation Date of Evaluation: 10/30/17 Time of Evaluation: 10:11 - Subjective Subjective: PGY2 medicine progress note for Dr. Downey's service Patient seen and examined. Patient states she feels less weak today after receiving blood transfusion. Patient's appetite improved slightly. Wound examined and dressings changed today with Dr. Urias. Objective - Vital Signs/Intake and Output Vital Signs (last 24 hours): Temp Pulse Resp BP Pulse Ox 97.8 F 76 20 143/83 100 10/30/17 08:34 10/30/17 08:34 10/30/17 08:34 10/30/17 08:34 10/30/17 08:34 Intake and Output: 10/30/17 10/30/17 06:59 18:59 Intake Total 850 Balance 850 - Medications Medications: Current Medications Apixaban (Eliquis) 5 mg PO BID [facility] Last Admin: 10/30/17 09:25 Dose: 5 mg Benzocaine/Menthol (Cepacol Sore Throat) 1 tiffany MT Q3 [facility] Last Admin: 10/30/17 09:25 Dose: 1 tiffany Bisacodyl (Dulcolax) 10 mg PO DAILY [facility] Last Admin: 10/30/17 09:25 Dose: 10 mg Diltiazem HCl (Cardizem) 60 mg PO BID [facility] Last Admin: 10/30/17 09:23 Dose: 60 mg Docusate Sodium (Colace) 100 mg PO BID [facility] Last Admin: 10/30/17 09:25 Dose: 100 mg Famotidine (Pepcid) 20 mg PO BID [facility] Last Admin: 10/30/17 09:26 Dose: 20 mg Megestrol Acetate (Megace) 400 mg PO DAILY [facility] Last Admin: 10/30/17 09:26 Dose: 400 mg Metoprolol Tartrate (Lopressor) 50 mg PO BID [facility] Last Admin: 10/30/17 09:29 Dose: 50 mg Morphine Sulfate (Morphine) 1 mg IV Q4 PRN PRN Reason: Pain, moderate (4-7) Last Admin: 10/28/17 15:52 Dose: 1 mg Polyethylene Glycol (Miralax) 17 gm PO DAILY [facility] Last Admin: 10/30/17 09:26 Dose: 17 gm Rosuvastatin Calcium (Crestor) 5 mg PO HS [facility] Last Admin: 10/29/17 21:45 Dose: 5 mg - Labs Labs: 10/30/17 08:05 10/30/17 08:05 PT 12.7 SECONDS (9.7-12.2) H 10/26/17 11:26 INR 1.1 10/26/17 11:26 APTT 26 SECONDS (21-34) D 10/26/17 11:26 - Constitutional Appears: No Acute Distress - Head Exam Head Exam: ATRAUMATIC, NORMOCEPHALIC - Eye Exam Eye Exam: EOMI - ENT Exam ENT Exam: Mucous Membranes Moist - Respiratory Exam Respiratory Exam: Clear to Ausculation Bilateral, NORMAL BREATHING PATTERN - Cardiovascular Exam Cardiovascular Exam: +S1, +S2 - GI/Abdominal Exam GI & Abdominal Exam: Soft, Normal Bowel Sounds. absent: Tenderness - Extremities Exam Additional comments: right hip dressings changed, small blister adjacent to dressing wound dressings changed and blister padded with gauze - Neurological Exam Neurological Exam: Alert, Awake - Psychiatric Exam Psychiatric exam: Normal Affect - Skin Skin Exam: Normal Color (improved s/p transfusion), Warm Assessment and Plan - Assessment and Plan (Free Text) Assessment: (1) Fracture of right hip Assessment and Plan: Per Dr. Urias: patient to have DRY dressing changes with telfa pad, gauze, and tegaderm. Wound is not to be washed with iodine or any other liquids as it can dissolve glue on incision. - POD#3 Right hip displaced IT fx closed reduction, internal fixation with hip nail -Xray of the Hip and Pelvis- Comminuted displaced right intratrochanteric fracture deformity. The femoral heads appear located. Sacroiliac joints appear intact. Mild constipation. No evidence of radiopaque foreign body. Refer to complete report -Hip CT showed acute intertrochanteric fracture of the right hip -Ortho on consult, Dr Francisco Foley, F/U recommendations * Morphine 1mg Q4H prn pain * Cefazolin 2mg Q8H * PT/OT on board Status: Acute (2) Anemia Assessment and Plan: stool OB pending patient received 1 unit PRBC overnight 10/29/17 repeat hemoglobin 10/30/17: 11.1 (3) Poor appetite Assessment and Plan: continue Ensure continue megace daily (4) New Onset Paroxysmal Afib Assessment and Plan: * EKG showed Afib with RVR * Monitor on telemetry * Patient is currently in sinus rhythma * Continue Lopressor 50mg PO BID * Continue Cardizem 60mg PO BID * Eliquis 5mg PO BID * Echo: EF 70%, Diastolic Dysfunction, Mild MR, Mild Pulm HTN, Mild Pulm Valve regurgitation * Cardiology on consult, Dr Soliman, F/U recommendations (5) Hypertension Assessment and Plan: * Normotensive at this time * May be elevated secondarily due to pain * Continue to monitor Status: Chronic (6) Hypercholesteremia Assessment and Plan: * Crestor 5mg PO HS Status: Chronic (7) Osteoporosis Assessment and Plan: * Hx of Osteoporosis * Patient would benefit from DEXA Scan outpatient if she has not already obtained with primary medical doctor. * Vitamin D Level 25-OH : 46.1 Status: Chronic (8) Prophylactic measure Assessment and Plan: * Eliquis 5mg BID * SCDs * Added Ensure TID for diet supplementation * Pepcid 20 mg PO BID Status: Acute All management as per Dr. Downey <Nayan Downey Jr. - Last Filed: 11/10/17 19:07> Objective - Vital Signs/Intake and Output Vital Signs (last 24 hours): Temp Pulse Resp BP Pulse Ox 97.9 F 82 20 106/66 99 11/02/17 07:00 11/02/17 08:00 11/02/17 07:00 11/02/17 07:00 11/02/17 07:00 - Labs Labs: 11/02/17 06:20 11/02/17 06:20 PT 12.7 SECONDS (9.7-12.2) H 10/26/17 11:26 INR 1.1 10/26/17 11:26 APTT 26 SECONDS (21-34) D 10/26/17 11:26 Attending/Attestation - Attestation I have personally seen and examined this patient.: Yes I have fully participated in the care of the patient.: Yes I have reviewed all pertinent clinical information, including history, physical exam and plan: Yes Notes (Text): 11/10/17 19:07 Agree with resident note and plan of care
--- NOTE | 2017-10-30 10:58 | CP.PCM.PN ---
Subjective - Date & Time of Evaluation Date of Evaluation: 10/30/17 Time of Evaluation: 10:55 - Subjective Subjective: patient lying in bed comfortably, pain well controlled. she denies chest pain, shortness of breath, fevers,chills, headache, nausea and vomiting,numbness and tingling, calf pain. Objective - Vital Signs/Intake and Output Vital Signs (last 24 hours): Temp Pulse Resp BP Pulse Ox 97.8 F 76 20 143/83 100 10/30/17 08:34 10/30/17 08:34 10/30/17 08:34 10/30/17 08:34 10/30/17 08:34 Intake and Output: 10/30/17 10/30/17 06:59 18:59 Intake Total 850 Balance 850 - Medications Medications: Current Medications Apixaban (Eliquis) 5 mg PO BID [facility] Last Admin: 10/30/17 09:25 Dose: 5 mg Benzocaine/Menthol (Cepacol Sore Throat) 1 tiffany MT Q3 [facility] Last Admin: 10/30/17 09:25 Dose: 1 tiffany Bisacodyl (Dulcolax) 10 mg PO DAILY [facility] Last Admin: 10/30/17 09:25 Dose: 10 mg Diltiazem HCl (Cardizem) 60 mg PO BID [facility] Last Admin: 10/30/17 09:23 Dose: 60 mg Docusate Sodium (Colace) 100 mg PO BID [facility] Last Admin: 10/30/17 09:25 Dose: 100 mg Famotidine (Pepcid) 20 mg PO BID [facility] Last Admin: 10/30/17 09:26 Dose: 20 mg Megestrol Acetate (Megace) 400 mg PO DAILY [facility] Last Admin: 10/30/17 09:26 Dose: 400 mg Metoprolol Tartrate (Lopressor) 50 mg PO BID [facility] Last Admin: 10/30/17 09:29 Dose: 50 mg Morphine Sulfate (Morphine) 1 mg IV Q4 PRN PRN Reason: Pain, moderate (4-7) Last Admin: 10/28/17 15:52 Dose: 1 mg Polyethylene Glycol (Miralax) 17 gm PO DAILY [facility] Last Admin: 10/30/17 09:26 Dose: 17 gm Rosuvastatin Calcium (Crestor) 5 mg PO [facility] Last Admin: 10/29/17 21:45 Dose: 5 mg - Labs Labs: 10/30/17 08:05 10/30/17 08:05 PT 12.7 SECONDS (9.7-12.2) H 10/26/17 11:26 INR 1.1 10/26/17 11:26 APTT 26 SECONDS (21-34) D 10/26/17 11:26 - Extremities Exam Additional comments: right lower extremity: Surgical wounds clean dry and intact, no swelling no warmth and no erythema, minimal tenderness to palpation at wounds and hip, -thigh swelling,-logroll +5/5 motor strength hip flexion/extension, knee flexion/extension, ankle dorsiflexion/plantar flexion, toes up and down sensory intact L2-S1, DPN/SPN/TN 2+ dorsalis pedis pulse and brisk cap refill all toes Left lower extremity: Unchanged Assessment and Plan (1) Closed intertrochanteric fracture of right femur Assessment & Plan: 82-year-old female with R hip pain after mechanical fall with no LOC. DX = R hip displaced intertrochanteric hip fracture Status post R hip intertrochanteric hip fracture closed reduction and internal fixation with hip nail 10/28/17, Postoperative day #2 Plan: R hip: -Progressing well. Physical therapy = out of bed as much as possible, ambulation, transfers, ambulation with walker, range of motion, stretching, strengthening Weightbearing as tolerated -From orthopedic point of view, as long as medically stable, patient okay for DC to facility/rehabilitation -Follow-up in the office at [facility], [phone], after 3-4 weeks after DC -Dry dressing change daily with Telfa, gauze, Tegaderm dressing, no wound treatment necessary. -Medical care per primary medical team -recieved 1 unit pRBC yesterday, CBC today shows return to baseline -DVT prophylaxis -Pain control with minimal narcotic use -Incentive spirometer -Please contact me with any questions, concerns, updates, Thank you for allowing me to participate in the care of your patient. bOie Bolden MD Orthopedic Surgery Status: Acute
--- NOTE | 2017-10-30 22:42 | CP.PCM.PN ---
Subjective - Date & Time of Evaluation Date of Evaluation: 10/29/17 Time of Evaluation: 10:10 - Subjective Subjective: Patient seen and evaluated Denies chest pain and dyspnea s/p hip surgery Objective - Vital Signs/Intake and Output Vital Signs (last 24 hours): Temp Pulse Resp BP Pulse Ox 99.0 F 77 20 124/78 99 10/30/17 15:08 10/30/17 21:42 10/30/17 15:08 10/30/17 21:42 10/30/17 15:08 - Medications Medications: Current Medications Apixaban (Eliquis) 5 mg PO BID [facility] Last Admin: 10/30/17 17:19 Dose: 5 mg Benzocaine/Menthol (Cepacol Sore Throat) 1 tiffany MT Q3 [facility] Last Admin: 10/30/17 21:57 Dose: 1 tiffany Bisacodyl (Dulcolax) 10 mg PO DAILY [facility] Last Admin: 10/30/17 09:25 Dose: 10 mg Diltiazem HCl (Cardizem) 60 mg PO BID [facility] Last Admin: 10/30/17 17:19 Dose: 60 mg Docusate Sodium (Colace) 100 mg PO BID [facility] Last Admin: 10/30/17 17:19 Dose: 100 mg Famotidine (Pepcid) 20 mg PO BID [facility] Last Admin: 10/30/17 17:19 Dose: 20 mg Megestrol Acetate (Megace) 400 mg PO DAILY [facility] Last Admin: 10/30/17 09:26 Dose: 400 mg Metoprolol Tartrate (Lopressor) 50 mg PO BID [facility] Last Admin: 10/30/17 21:53 Dose: 50 mg Morphine Sulfate (Morphine) 1 mg IV Q4 PRN PRN Reason: Pain, moderate (4-7) Last Admin: 10/28/17 15:52 Dose: 1 mg Polyethylene Glycol (Miralax) 17 gm PO DAILY [facility] Last Admin: 10/30/17 09:26 Dose: 17 gm Rosuvastatin Calcium (Crestor) 5 mg PO HS [facility] Last Admin: 10/30/17 21:57 Dose: 5 mg - Labs Labs: 10/30/17 08:05 10/30/17 08:05 PT 12.7 SECONDS (9.7-12.2) H 10/26/17 11:26 INR 1.1 10/26/17 11:26 APTT 26 SECONDS (21-34) D 10/26/17 11:26
--- NOTE | 2017-10-30 22:43 | CP.PCM.PN ---
Subjective - Date & Time of Evaluation Date of Evaluation: 10/30/17 Time of Evaluation: 17:00 - Subjective Subjective: Patient seen and evaluated Denies chest pain and dyspnea s/p hip surgery Objective - Vital Signs/Intake and Output Vital Signs (last 24 hours): Temp Pulse Resp BP Pulse Ox 99.0 F 77 20 124/78 99 10/30/17 15:08 10/30/17 21:42 10/30/17 15:08 10/30/17 21:42 10/30/17 15:08 - Medications Medications: Current Medications Apixaban (Eliquis) 5 mg PO BID [facility] Last Admin: 10/30/17 17:19 Dose: 5 mg Benzocaine/Menthol (Cepacol Sore Throat) 1 tiffany MT Q3 [facility] Last Admin: 10/30/17 21:57 Dose: 1 tiffany Bisacodyl (Dulcolax) 10 mg PO DAILY [facility] Last Admin: 10/30/17 09:25 Dose: 10 mg Diltiazem HCl (Cardizem) 60 mg PO BID [facility] Last Admin: 10/30/17 17:19 Dose: 60 mg Docusate Sodium (Colace) 100 mg PO BID [facility] Last Admin: 10/30/17 17:19 Dose: 100 mg Famotidine (Pepcid) 20 mg PO BID [facility] Last Admin: 10/30/17 17:19 Dose: 20 mg Megestrol Acetate (Megace) 400 mg PO DAILY [facility] Last Admin: 10/30/17 09:26 Dose: 400 mg Metoprolol Tartrate (Lopressor) 50 mg PO BID [facility] Last Admin: 10/30/17 21:53 Dose: 50 mg Morphine Sulfate (Morphine) 1 mg IV Q4 PRN PRN Reason: Pain, moderate (4-7) Last Admin: 10/28/17 15:52 Dose: 1 mg Polyethylene Glycol (Miralax) 17 gm PO DAILY [facility] Last Admin: 10/30/17 09:26 Dose: 17 gm Rosuvastatin Calcium (Crestor) 5 mg PO HS [facility] Last Admin: 10/30/17 21:57 Dose: 5 mg - Labs Labs: 10/30/17 08:05 10/30/17 08:05 PT 12.7 SECONDS (9.7-12.2) H 10/26/17 11:26 INR 1.1 10/26/17 11:26 APTT 26 SECONDS (21-34) D 10/26/17 11:26
[2017-10-31] MEDS: Benzocaine/Menthol (Cepacol) Lozenge MT SCH ×8 (01:02→22:20)
[2017-10-31 07:47] LABS: BASO % 0.5 % (0.0-2.0); EOS # 0.2 K/uL (0.0-0.7); EOS % 1.6 % (0.0-4.0); HEMOGLOBIN 11.5 g/dL (11.0-16.0); LYMPH # 2.4 K/uL (1.0-4.3); LYMPH % 24.4 % (20.0-40.0); MEAN CELL VOLUME 92.9 fL (81.0-99.0); MEAN CORPUSCULAR HEMOGLOBIN 32.1 pg (27.0-31.0); MEAN CORPUSCULAR HGB CONC 34.5 g/dL (33.0-37.0); MEAN PLATELET VOLUME 8.1 fL (7.2-11.7); MONO # 1.2 K/uL (0.0-0.8); MONO % 11.9 % (0.0-10.0); NEUT # 6.1 K/uL (1.8-7.0); NEUT % 61.6 % (50.0-75.0); RBC 3.59 Mil/uL (3.80-5.20); RED CELL DISTRIBUTION WIDTH 14.7 % (11.5-14.5); WHITE BLOOD COUNT 9.9 K/uL (4.8-10.8)
--- NOTE | 2017-10-31 07:47 | CP.PCM.PN ---
<Jayla Ricardo - Last Filed: 10/31/17 17:28> Subjective - Date & Time of Evaluation Date of Evaluation: 10/31/17 Time of Evaluation: 07:47 - Subjective Subjective: Medicine progress note for Dr. Downey's service Patient was seen and examined at bedside. Patient reports feeling "a little better", but still having a lot of pain in her leg. Patient reports she has not been using her incentive spirometer frequently. Patient denies chest pain, shortness of breath, abdominal pain, nausea, vomiting, fevers, and headaches. Objective - Vital Signs/Intake and Output Vital Signs (last 24 hours): Temp Pulse Resp BP Pulse Ox 98.3 F 71 20 120/76 95 10/31/17 04:49 10/31/17 04:49 10/31/17 04:49 10/31/17 04:49 10/31/17 04:49 - Medications Medications: Current Medications Apixaban (Eliquis) 5 mg PO BID [facility] Last Admin: 10/30/17 17:19 Dose: 5 mg Benzocaine/Menthol (Cepacol Sore Throat) 1 tiffany MT Q3 [facility] Last Admin: 10/31/17 06:26 Dose: Not Given Bisacodyl (Dulcolax) 10 mg PO DAILY [facility] Last Admin: 10/30/17 09:25 Dose: 10 mg Diltiazem HCl (Cardizem) 60 mg PO BID [facility] Last Admin: 10/30/17 17:19 Dose: 60 mg Docusate Sodium (Colace) 100 mg PO BID [facility] Last Admin: 10/30/17 17:19 Dose: 100 mg Famotidine (Pepcid) 20 mg PO BID [facility] Last Admin: 10/30/17 17:19 Dose: 20 mg Megestrol Acetate (Megace) 400 mg PO DAILY [facility] Last Admin: 10/30/17 09:26 Dose: 400 mg Metoprolol Tartrate (Lopressor) 50 mg PO BID [facility] Last Admin: 10/30/17 21:53 Dose: 50 mg Morphine Sulfate (Morphine) 1 mg IV Q4 PRN PRN Reason: Pain, moderate (4-7) Last Admin: 10/28/17 15:52 Dose: 1 mg Polyethylene Glycol (Miralax) 17 gm PO DAILY [facility] Last Admin: 10/30/17 09:26 Dose: 17 gm Rosuvastatin Calcium (Crestor) 5 mg PO HS [facility] Last Admin: 10/30/17 21:57 Dose: 5 mg - Labs Labs: 10/30/17 08:05 10/30/17 08:05 PT 12.7 SECONDS (9.7-12.2) H 10/26/17 11:26 INR 1.1 10/26/17 11:26 APTT 26 SECONDS (21-34) D 10/26/17 11:26 - Constitutional Appears: No Acute Distress - Head Exam Head Exam: ATRAUMATIC, NORMAL INSPECTION - Eye Exam Eye Exam: EOMI, Normal appearance - ENT Exam ENT Exam: Mucous Membranes Moist - Respiratory Exam Respiratory Exam: Clear to Ausculation Bilateral, NORMAL BREATHING PATTERN. absent: Rales, Rhonchi, Wheezes, Respiratory Distress - Cardiovascular Exam Cardiovascular Exam: REGULAR RHYTHM, +S1, +S2 - GI/Abdominal Exam GI & Abdominal Exam: Soft, Normal Bowel Sounds. absent: Distended, Firm, Guarding, Tenderness - Extremities Exam Additional comments: dressing clean, dry, and intact; pulses present; sensation intact - Neurological Exam Neurological Exam: Alert, Awake, Oriented x3 - Psychiatric Exam Psychiatric exam: Normal Affect, Normal Mood - Skin Skin Exam: Dry, Intact, Normal Color, Warm Assessment and Plan - Assessment and Plan (Free Text) Plan: (1) Fracture of right hip Assessment and Plan: Per Dr. Urias: patient to have DRY dressing changes with telfa pad, gauze, and tegaderm. Wound is not to be washed with iodine or any other liquids as it can dissolve glue on incision. * POD#5 Right hip displaced IT fx closed reduction, internal fixation with hip nail * Xray of the Hip and Pelvis- Comminuted displaced right intratrochanteric fracture deformity. The femoral heads appear located. Sacroiliac joints appear intact. Mild constipation. No evidence of radiopaque foreign body. Refer to complete report * Hip CT showed acute intertrochanteric fracture of the right hip * Ortho on consult, Dr Francisco Foley, F/U recommendations * Morphine 2mg Q4H prn pain * Tylenol 975mg PO Q8 PRN * PT/OT on board * Encourage OOB, ambulation as much as possible; weightbearing as tolerated Status: Acute (2) Anemia Assessment and Plan: * Stool OB pending * patient received 1 unit PRBC overnight 10/29/17 * repeat hemoglobin 10/30/17: 11.1 * Hgb 10/31: 11/5 (3) Poor appetite Assessment and Plan: * continue Ensure * continue megace daily (4) New Onset Paroxysmal Afib Assessment and Plan: * EKG showed Afib with RVR * Monitor on telemetry * Patient is currently in sinus rhythma * Continue Lopressor 50mg PO BID * Continue Cardizem 60mg PO BID * Eliquis 5mg PO BID * Echo: EF 70%, Diastolic Dysfunction, Mild MR, Mild Pulm HTN, Mild Pulm Valve regurgitation * Cardiology on consult, Dr Soliman, F/U recommendations (5) Hypertension Assessment and Plan: * Normotensive at this time * May be elevated secondarily due to pain * Continue to monitor Status: Chronic (6) Hypercholesteremia Assessment and Plan: * Crestor 5mg PO HS Status: Chronic (7) Osteoporosis Assessment and Plan: * Hx of Osteoporosis * Patient would benefit from DEXA Scan outpatient if she has not already obtained with primary medical doctor. * Vitamin D Level 25-OH : 46.1 Status: Chronic (8) Prophylactic measure Assessment and Plan: * Eliquis 5mg BID * SCDs * Added Ensure TID for diet supplementation * Pepcid 20 mg PO BID Status: Acute Will discuss with Dr. Downey <Nayan Downey Jr. - Last Filed: 11/10/17 19:10> Objective - Vital Signs/Intake and Output Vital Signs (last 24 hours): Temp Pulse Resp BP Pulse Ox 97.9 F 82 20 106/66 99 11/02/17 07:00 11/02/17 08:00 11/02/17 07:00 11/02/17 07:00 11/02/17 07:00 - Labs Labs: 11/02/17 06:20 11/02/17 06:20 PT 12.7 SECONDS (9.7-12.2) H 10/26/17 11:26 INR 1.1 10/26/17 11:26 APTT 26 SECONDS (21-34) D 10/26/17 11:26 Attending/Attestation - Attestation I have personally seen and examined this patient.: Yes I have fully participated in the care of the patient.: Yes I have reviewed all pertinent clinical information, including history, physical exam and plan: Yes Notes (Text): 11/10/17 19:10 Agree with resident note and plan of care
[2017-10-31 08:22] LABS: ALBUMIN 3.3 g/dL (3.5-5.0); ALT/SGPT 26 U/L (9-52); AST/SGOT 26 U/L (14-36); BLOOD UREA NITROGEN 16 mg/dL (7-17); GFR AFRICAN-AMERICAN > 60; GFR NON-AFRICAN AMERICAN > 60
[2017-10-31] MEDS: POLYETHYLENE GLYCOL 3350 17 GM/Dose PACKET PO SCH (09:25)
[2017-10-31] MEDS: Bisacodyl 5mg EC Tab PO SCH (09:25)
[2017-10-31] MEDS: Megestrol Acetate 40 mg/ml Cup PO SCH (09:25)
--- NOTE | 2017-10-31 11:57 | CP.PCM.PN ---
Subjective - Date & Time of Evaluation Date of Evaluation: 10/31/17 Time of Evaluation: 11:54 - Subjective Subjective: Patient still complaining of severe pain in her leg. minimal participation in PT , encouraged. Denies CP/SOB/dizziness. Objective - Vital Signs/Intake and Output Vital Signs (last 24 hours): Temp Pulse Resp BP Pulse Ox 98.4 F 76 20 119/79 94 L 10/31/17 09:24 10/31/17 09:24 10/31/17 09:24 10/31/17 09:24 10/31/17 09:24 - Medications Medications: Current Medications Apixaban (Eliquis) 5 mg PO BID [facility] Last Admin: 10/31/17 09:25 Dose: 5 mg Benzocaine/Menthol (Cepacol Sore Throat) 1 tiffany MT Q3 [facility] Last Admin: 10/31/17 09:25 Dose: Not Given Bisacodyl (Dulcolax) 10 mg PO DAILY [facility] Last Admin: 10/31/17 09:25 Dose: 10 mg Diltiazem HCl (Cardizem) 60 mg PO BID [facility] Last Admin: 10/31/17 09:25 Dose: 60 mg Docusate Sodium (Colace) 100 mg PO BID [facility] Last Admin: 10/31/17 09:25 Dose: 100 mg Famotidine (Pepcid) 20 mg PO BID [facility] Last Admin: 10/31/17 09:25 Dose: 20 mg Megestrol Acetate (Megace) 400 mg PO DAILY [facility] Last Admin: 10/31/17 09:25 Dose: 400 mg Metoprolol Tartrate (Lopressor) 50 mg PO BID [facility] Last Admin: 10/31/17 09:25 Dose: 50 mg Morphine Sulfate (Morphine) 1 mg IV Q4 PRN PRN Reason: Pain, moderate (4-7) Last Admin: 10/28/17 15:52 Dose: 1 mg Polyethylene Glycol (Miralax) 17 gm PO DAILY [facility] Last Admin: 10/31/17 09:25 Dose: 17 gm Rosuvastatin Calcium (Crestor) 5 mg PO HS [facility] Last Admin: 10/30/17 21:57 Dose: 5 mg - Labs Labs: 10/31/17 07:21 10/31/17 07:21 PT 12.7 SECONDS (9.7-12.2) H 10/26/17 11:26 INR 1.1 10/26/17 11:26 APTT 26 SECONDS (21-34) D 10/26/17 11:26 - Extremities Exam Additional comments: right thigh mildly swollen, no increase from last exam incision sites no visible drainage +ROM ankle/toes, sensation intact, calves soft NT neg homans +DP pulse Assessment and Plan (1) Closed intertrochanteric fracture of right femur Assessment & Plan: POD# 5 s/p right hip IM nailing will add tylenol around the clock for better pain control, patient has not taken morphine either, will increase to 2mg prn d/c planning to [facility] awaiting auth VTE proph, on eliquis 5mg PO BID due to afib, no increased swelling noted cont ice orthopedically stable for d/c to rehab, f/u Dr. Pabon approx 10 days call for appt d/w Dr. Pabon agrees withchase mercedes Status: Acute (2) Acute blood loss anemia Assessment & Plan: s/p transfusion, stable Status: Acute
--- NOTE | 2017-10-31 23:14 | CP.PCM.PN ---
Subjective - Date & Time of Evaluation Date of Evaluation: 10/31/17 Time of Evaluation: 07:55 - Subjective Subjective: Patient seen and evaluated Denies chest pain and dyspnea No cardiac events noted Objective - Vital Signs/Intake and Output Vital Signs (last 24 hours): Temp Pulse Resp BP Pulse Ox 98.3 F 72 18 103/71 100 10/31/17 15:32 10/31/17 21:28 10/31/17 15:32 10/31/17 21:28 10/31/17 15:32 Intake and Output: 10/31/17 11/01/17 18:59 06:59 Intake Total 180 Output Total 500 Balance 180 -500 - Medications Medications: Current Medications Acetaminophen (Tylenol 325mg Tab) 975 mg PO Q8 [facility] Last Admin: 10/31/17 21:23 Dose: 975 mg Apixaban (Eliquis) 5 mg PO BID [facility] Last Admin: 10/31/17 18:14 Dose: 5 mg Benzocaine/Menthol (Cepacol Sore Throat) 1 tiffany MT Q3 [facility] Last Admin: 10/31/17 22:20 Dose: Not Given Bisacodyl (Dulcolax) 10 mg PO DAILY [facility] Last Admin: 10/31/17 09:25 Dose: 10 mg Diltiazem HCl (Cardizem) 60 mg PO BID [facility] Last Admin: 10/31/17 21:22 Dose: 60 mg Docusate Sodium (Colace) 100 mg PO BID [facility] Last Admin: 10/31/17 18:14 Dose: 100 mg Famotidine (Pepcid) 20 mg PO BID [facility] Last Admin: 10/31/17 18:14 Dose: 20 mg Megestrol Acetate (Megace) 400 mg PO DAILY [facility] Last Admin: 10/31/17 09:25 Dose: 400 mg Metoprolol Tartrate (Lopressor) 50 mg PO BID [facility] Last Admin: 10/31/17 18:14 Dose: Not Given Morphine Sulfate (Morphine) 2 mg IV Q4 PRN PRN Reason: Pain, moderate (4-7) Last Admin: 10/31/17 13:17 Dose: 2 mg Polyethylene Glycol (Miralax) 17 gm PO DAILY [facility] Last Admin: 10/31/17 09:25 Dose: 17 gm Rosuvastatin Calcium (Crestor) 5 mg PO HS [facility] Last Admin: 10/31/17 21:22 Dose: 5 mg - Labs Labs: 10/31/17 07:21 10/31/17 07:21 PT 12.7 SECONDS (9.7-12.2) H 10/26/17 11:26 INR 1.1 10/26/17 11:26 APTT 26 SECONDS (21-34) D 10/26/17 11:26
[2017-11-01 01:31] VITALS: RESP 20
[2017-11-01] MEDS: Benzocaine/Menthol (Cepacol) Lozenge MT SCH ×7 (01:50→21:36)
--- NOTE | 2017-11-01 06:47 | CP.PCM.PN ---
<Jayla Ricardo - Last Filed: 11/01/17 17:08> Subjective - Date & Time of Evaluation Date of Evaluation: 11/01/17 Time of Evaluation: 06:47 - Subjective Subjective: Medicine progress note for Dr. Downey's service Patient was seen and examined at bedside. Patient reports feeling better; she reports the pain improves with pain medications, but still hurts with movement. Patient reports she has not been using her incentive spirometer frequently. As per nursing, patient has low motivation to improve- ambulate, work with PT, and incentive spirometer. Patient denies chest pain, shortness of breath, abdominal pain, nausea, vomiting, fevers, and headaches. Objective - Vital Signs/Intake and Output Vital Signs (last 24 hours): Temp Pulse Resp BP Pulse Ox 98.0 F 83 20 104/69 100 11/01/17 04:30 11/01/17 04:30 11/01/17 04:30 11/01/17 04:30 11/01/17 04:30 Intake and Output: 10/31/17 11/01/17 18:59 06:59 Intake Total 180 175 Output Total 500 Balance 180 -325 - Medications Medications: Current Medications Acetaminophen (Tylenol 325mg Tab) 975 mg PO Q8 [facility] Last Admin: 11/01/17 06:02 Dose: 975 mg Apixaban (Eliquis) 5 mg PO BID [facility] Last Admin: 10/31/17 18:14 Dose: 5 mg Benzocaine/Menthol (Cepacol Sore Throat) 1 tiffany MT Q3 [facility] Last Admin: 11/01/17 06:04 Dose: Not Given Bisacodyl (Dulcolax) 10 mg PO DAILY [facility] Last Admin: 10/31/17 09:25 Dose: 10 mg Diltiazem HCl (Cardizem) 60 mg PO BID [facility] Last Admin: 10/31/17 21:22 Dose: 60 mg Docusate Sodium (Colace) 100 mg PO BID [facility] Last Admin: 10/31/17 18:14 Dose: 100 mg Famotidine (Pepcid) 20 mg PO BID [facility] Last Admin: 10/31/17 18:14 Dose: 20 mg Megestrol Acetate (Megace) 400 mg PO DAILY [facility] Last Admin: 10/31/17 09:25 Dose: 400 mg Metoprolol Tartrate (Lopressor) 50 mg PO BID [facility] Last Admin: 10/31/17 18:14 Dose: Not Given Morphine Sulfate (Morphine) 2 mg IV Q4 PRN PRN Reason: Pain, moderate (4-7) Last Admin: 10/31/17 13:17 Dose: 2 mg Polyethylene Glycol (Miralax) 17 gm PO DAILY [facility] Last Admin: 10/31/17 09:25 Dose: 17 gm Rosuvastatin Calcium (Crestor) 5 mg PO HS [facility] Last Admin: 10/31/17 21:22 Dose: 5 mg - Labs Labs: 10/31/17 07:21 10/31/17 07:21 PT 12.7 SECONDS (9.7-12.2) H 10/26/17 11:26 INR 1.1 10/26/17 11:26 APTT 26 SECONDS (21-34) D 10/26/17 11:26 - Additional Findings Additional findings: - Constitutional Appears: No Acute Distress - Head Exam Head Exam: ATRAUMATIC, NORMAL INSPECTION - Eye Exam Eye Exam: EOMI, Normal appearance - ENT Exam ENT Exam: Mucous Membranes Moist - Respiratory Exam Respiratory Exam: Clear to Ausculation Bilateral, decreased breath sounds ( little effort), NORMAL BREATHING PATTERN. absent: Rales, Rhonchi, Wheezes, Respiratory Distress - Cardiovascular Exam Cardiovascular Exam: REGULAR RHYTHM, +S1, +S2 - GI/Abdominal Exam GI & Abdominal Exam: Soft, Normal Bowel Sounds. absent: Distended, Firm, Guarding, Tenderness - Extremities Exam Additional comments: dressing clean, dry, and intact; pulses present; sensation intact - Neurological Exam Neurological Exam: Alert, Awake, Oriented x3 - Psychiatric Exam Psychiatric exam: Normal Affect, Normal Mood - Skin Skin Exam: Dry, Intact, Normal Color, Warm Assessment and Plan - Assessment and Plan (Free Text) Plan: (1) Fracture of right hip Assessment and Plan: Per Dr. Urias: patient to have DRY dressing changes with telfa pad, gauze, and tegaderm. Wound is not to be washed with iodine or any other liquids as it can dissolve glue on incision. * POD#6 Right hip displaced IT fx closed reduction, internal fixation with hip nail * Xray of the Hip and Pelvis- Comminuted displaced right intratrochanteric fracture deformity. The femoral heads appear located. Sacroiliac joints appear intact. Mild constipation. No evidence of radiopaque foreign body. Refer to complete report * Hip CT showed acute intertrochanteric fracture of the right hip * Ortho on consult, Dr Francisco Foley, F/U recommendations * Morphine 2mg Q4H prn pain * Tylenol 975mg PO Q8 PRN * PT/OT on board * Encourage OOB, ambulation as much as possible; weightbearing as tolerated Status: Acute (2) Anemia Assessment and Plan: * Stool OB pending * patient received 1 unit PRBC overnight 10/29/17 * repeat hemoglobin 10/30/17: 11.1; trending up, hgb 10/31: 11/5 (3) Poor appetite Assessment and Plan: * continue Ensure * continue megace daily (4) New Onset Paroxysmal Afib Assessment and Plan: * EKG showed Afib with RVR * Monitor on telemetry * Patient is currently in sinus rhythma * Continue Lopressor 50mg PO BID * Continue Cardizem 60mg PO BID * Eliquis 5mg PO BID * Echo: EF 70%, Diastolic Dysfunction, Mild MR, Mild Pulm HTN, Mild Pulm Valve regurgitation * Cardiology on consult, Dr Soliman, F/U recommendations (5) Hypertension Assessment and Plan: * Normotensive at this time * May be elevated secondarily due to pain * Continue to monitor Status: Chronic (6) Hypercholesteremia Assessment and Plan: * Crestor 5mg PO HS Status: Chronic (7) Osteoporosis Assessment and Plan: * Hx of Osteoporosis * Patient would benefit from DEXA Scan outpatient if she has not already obtained with primary medical doctor. * Vitamin D Level 25-OH : 46.1 Status: Chronic (8) Prophylactic measure Assessment and Plan: * Eliquis 5mg BID * SCDs * Added Ensure TID for diet supplementation * Pepcid 20 mg PO BID Status: Acute DISPO: Pending authorization and placement for SILVIA. Discussed with Dr. Downey <Nayan Downey Jr. - Last Filed: 11/10/17 19:12> Objective - Vital Signs/Intake and Output Vital Signs (last 24 hours): Temp Pulse Resp BP Pulse Ox 97.9 F 82 20 106/66 99 11/02/17 07:00 11/02/17 08:00 11/02/17 07:00 11/02/17 07:00 11/02/17 07:00 - Labs Labs: 11/02/17 06:20 11/02/17 06:20 PT 12.7 SECONDS (9.7-12.2) H 10/26/17 11:26 INR 1.1 10/26/17 11:26 APTT 26 SECONDS (21-34) D 10/26/17 11:26 Attending/Attestation - Attestation I have personally seen and examined this patient.: Yes I have fully participated in the care of the patient.: Yes I have reviewed all pertinent clinical information, including history, physical exam and plan: Yes Notes (Text): 11/10/17 19:12 Agree with the resident note and plans of care
[2017-11-01 07:19] LABS: ALB/GLOB RATIO 0.9 (1.0-2.1); ALBUMIN 3.2 g/dL (3.5-5.0); ALT/SGPT 31 U/L (9-52); AST/SGOT 37 U/L (14-36); BLOOD UREA NITROGEN 27 mg/dL (7-17); CALCIUM 8.8 mg/dl (8.6-10.4); GFR AFRICAN-AMERICAN > 60; GFR NON-AFRICAN AMERICAN > 60
[2017-11-01 07:36] LABS: BASO % 0.4 % (0.0-2.0); EOS # 0.1 K/uL (0.0-0.7); EOS % 1.6 % (0.0-4.0); HEMOGLOBIN 11.3 g/dL (11.0-16.0); LYMPH # 2.3 K/uL (1.0-4.3); LYMPH % 25.3 % (20.0-40.0); MEAN CELL VOLUME 93.5 fL (81.0-99.0); MEAN CORPUSCULAR HEMOGLOBIN 31.7 pg (27.0-31.0); MEAN CORPUSCULAR HGB CONC 33.9 g/dL (33.0-37.0); MEAN PLATELET VOLUME 8.3 fL (7.2-11.7); MONO # 1.1 K/uL (0.0-0.8); MONO % 12.3 % (0.0-10.0); NEUT # 5.5 K/uL (1.8-7.0); NEUT % 60.4 % (50.0-75.0); NRBC % 0.1 % (0.0-2.0); RBC 3.56 Mil/uL (3.80-5.20); RED CELL DISTRIBUTION WIDTH 14.1 % (11.5-14.5); WHITE BLOOD COUNT 9.1 K/uL (4.8-10.8)
[2017-11-01] MEDS: POLYETHYLENE GLYCOL 3350 17 GM/Dose PACKET PO SCH (10:35)
[2017-11-01] MEDS: Megestrol Acetate 40 mg/ml Cup PO SCH (10:35)
[2017-11-01] MEDS: Bisacodyl 5mg EC Tab PO SCH (10:36)
--- NOTE | 2017-11-01 23:38 | CP.PCM.PN ---
Subjective - Date & Time of Evaluation Date of Evaluation: 11/01/17 Time of Evaluation: 11:20 - Subjective Subjective: Patient seen and evaluated Denies chest pain and dyspnea s/p Hip surgery and stable Objective - Vital Signs/Intake and Output Vital Signs (last 24 hours): Temp Pulse Resp BP Pulse Ox 98.2 F 81 20 107/67 97 11/01/17 15:19 11/01/17 15:44 11/01/17 15:19 11/01/17 15:19 11/01/17 15:19 - Medications Medications: Current Medications Acetaminophen (Tylenol 325mg Tab) 975 mg PO Q8 [facility] Last Admin: 11/01/17 21:36 Dose: 975 mg Apixaban (Eliquis) 5 mg PO BID [facility] Last Admin: 11/01/17 17:37 Dose: 5 mg Benzocaine/Menthol (Cepacol Sore Throat) 1 tiffany MT Q3 [facility] Last Admin: 11/01/17 21:36 Dose: Not Given Bisacodyl (Dulcolax) 10 mg PO DAILY [facility] Last Admin: 11/01/17 10:36 Dose: 10 mg Diltiazem HCl (Cardizem) 60 mg PO BID [facility] Last Admin: 11/01/17 17:37 Dose: 60 mg Docusate Sodium (Colace) 100 mg PO BID [facility] Last Admin: 11/01/17 17:37 Dose: 100 mg Famotidine (Pepcid) 20 mg PO BID [facility] Last Admin: 11/01/17 17:37 Dose: 20 mg Megestrol Acetate (Megace) 400 mg PO DAILY [facility] Last Admin: 11/01/17 10:35 Dose: 400 mg Metoprolol Tartrate (Lopressor) 50 mg PO BID [facility] Last Admin: 11/01/17 17:44 Dose: Not Given Morphine Sulfate (Morphine) 2 mg IV Q4 PRN PRN Reason: Pain, moderate (4-7) Last Admin: 11/01/17 17:37 Dose: 2 mg Polyethylene Glycol (Miralax) 17 gm PO DAILY [facility] Last Admin: 11/01/17 10:35 Dose: 17 gm Rosuvastatin Calcium (Crestor) 5 mg PO HS [facility] Last Admin: 11/01/17 21:36 Dose: 5 mg - Labs Labs: 11/01/17 06:32 01/16/18 06:32 PT 12.7 SECONDS (9.7-12.2) H 10/26/17 11:26 INR 1.1 10/26/17 11:26 APTT 26 SECONDS (21-34) D 10/26/17 11:26
[2017-11-02] MEDS: Benzocaine/Menthol (Cepacol) Lozenge MT SCH ×5 (03:03→13:38)
[2017-11-02 06:40] LABS: BASO # 0.1 K/uL (0.0-0.2); BASO % 0.6 % (0.0-2.0); EOS # 0.1 K/uL (0.0-0.7); EOS % 1.3 % (0.0-4.0); HEMOGLOBIN 11.2 g/dL (11.0-16.0); LYMPH # 2.3 K/uL (1.0-4.3); MEAN CELL VOLUME 93.8 fL (81.0-99.0); MEAN CORPUSCULAR HEMOGLOBIN 32.2 pg (27.0-31.0); MEAN CORPUSCULAR HGB CONC 34.3 g/dL (33.0-37.0); MEAN PLATELET VOLUME 7.8 fL (7.2-11.7); MONO # 1.1 K/uL (0.0-0.8); MONO % 12.2 % (0.0-10.0); NEUT # 5.7 K/uL (1.8-7.0); NEUT % 60.9 % (50.0-75.0); RBC 3.49 Mil/uL (3.80-5.20); RED CELL DISTRIBUTION WIDTH 14.3 % (11.5-14.5); WHITE BLOOD COUNT 9.3 K/uL (4.8-10.8)
[2017-11-02 07:34] LABS: ALBUMIN 3.3 g/dL (3.5-5.0); ALT/SGPT 24 U/L (9-52); AST/SGOT 27 U/L (14-36); BLOOD UREA NITROGEN 22 mg/dL (7-17); CALCIUM 9.1 mg/dl (8.6-10.4); GFR AFRICAN-AMERICAN > 60; GFR NON-AFRICAN AMERICAN > 60
[2017-11-02 08:09] VITALS: BP 106/66; PULSE 82; TEMP 97.9; O2SAT 99
[2017-11-02] MEDS: Megestrol Acetate 40 mg/ml Cup PO SCH (09:42)
[2017-11-02] MEDS: POLYETHYLENE GLYCOL 3350 17 GM/Dose PACKET PO SCH (09:43)
[2017-11-02] MEDS: Bisacodyl 5mg EC Tab PO SCH (09:43)
--- NOTE | 2017-11-02 18:37 | CP.PCM.DIS ---
Provider - Provider Date of Admission: 10/24/17 15:07 Attending physician: Nayan Downey Jr, MD Consults: Orthopedic surgery: Dr. Francisco Garcia Time Spent in preparation of Discharge (in minutes): 45 Hospital Course - Lab Results Lab Results: Most Recent Lab Values WBC 9.3 K/uL (4.8-10.8) 11/02/17 06:20 RBC 3.49 Mil/uL (3.80-5.20) L 11/02/17 06:20 Hgb 11.2 g/dL (11.0-16.0) 11/02/17 06:20 Hct 32.7 % (34.0-47.0) L 11/02/17 06:20 MCV 93.8 fL (81.0-99.0) 11/02/17 06:20 MCH 32.2 pg (27.0-31.0) H 11/02/17 06:20 MCHC 34.3 g/dL (33.0-37.0) 11/02/17 06:20 RDW 14.3 % (11.5-14.5) 11/02/17 06:20 Plt Count 306 K/uL (130-400) 11/02/17 06:20 MPV 7.8 fL (7.2-11.7) 11/02/17 06:20 Neut % (Auto) 60.9 % (50.0-75.0) 11/02/17 06:20 Lymph % (Auto) 25.0 % (20.0-40.0) 11/02/17 06:20 [place] % (Auto) 12.2 % (0.0-10.0) H 11/02/17 06:20 Eos % (Auto) 1.3 % (0.0-4.0) 11/02/17 06:20 Baso % (Auto) 0.6 % (0.0-2.0) 11/02/17 06:20 Neut # 5.7 K/uL (1.8-7.0) 11/02/17 06:20 Lymph # 2.3 K/uL (1.0-4.3) 11/02/17 06:20 [place] # 1.1 K/uL (0.0-0.8) H 11/02/17 06:20 Eos # 0.1 K/uL (0.0-0.7) 11/02/17 06:20 Baso # 0.1 K/uL (0.0-0.2) 11/02/17 06:20 Differential Comment 10/26/17 11:26 PT 12.7 SECONDS (9.7-12.2) H 10/26/17 11:26 INR 1.1 10/26/17 11:26 APTT 26 SECONDS (21-34) D 10/26/17 11:26 Sodium 130 mmol/L (132-148) L 11/02/17 06:20 Potassium 4.3 mmol/L (3.6-5.2) 11/02/17 06:20 Chloride 98 mmol/L (98-107) 11/02/17 06:20 Carbon Dioxide 27 mmol/L (22-30) 11/02/17 06:20 Anion Gap 10 (10-20) 11/02/17 06:20 BUN 22 mg/dL (7-17) H 11/02/17 06:20 Creatinine 0.5 mg/dL (0.7-1.2) L 11/02/17 06:20 Est GFR ( Amer) > 60 11/02/17 06:20 Est GFR (Non-Af Amer) > 60 11/02/17 06:20 POC Glucose (mg/dL) 113 mg/dL (65-110) H 10/31/17 20:47 Random Glucose 104 mg/dL (65-105) 11/02/17 06:20 Calcium 9.1 mg/dl (8.6-10.4) 11/02/17 06:20 Phosphorus 3.2 mg/dL (2.5-4.5) 10/30/17 08:05 Magnesium 1.7 mg/dL (1.6-2.3) 10/30/17 08:05 Total Bilirubin 1.0 mg/dL (0.2-1.3) 11/02/17 06:20 AST 27 U/L (14-36) 11/02/17 06:20 ALT 24 U/L (9-52) 11/02/17 06:20 Alkaline Phosphatase 70 U/L (38-126) 11/02/17 06:20 Total Protein 6.6 g/dL (6.3-8.3) 11/02/17 06:20 Albumin 3.3 g/dL (3.5-5.0) L 11/02/17 06:20 Globulin 3.3 gm/dL (2.2-3.9) 11/02/17 06:20 Albumin/Globulin Ratio 1.0 (1.0-2.1) 11/02/17 06:20 25-OH Vitamin D Total 46.1 NG/ML (30.0-100.0) 10/25/17 06:45 Urine Color Yellow (YELLOW) 10/25/17 11:04 Urine Clarity Clear (Clear) 10/25/17 11:04 Urine pH 5.0 (5.0-8.0) 10/25/17 11:04 Ur Specific [place] 1.020 (1.003-1.030) 10/25/17 11:04 Urine Protein Negative mg/dL (NEGATIVE) 10/25/17 11:04 Urine Glucose (UA) Normal mg/dL (Normal) 10/25/17 11:04 Urine Ketones 2+ mg/dL (NEGATIVE) H 10/25/17 11:04 Urine Blood 2+ (NEGATIVE) H 10/25/17 11:04 Urine Nitrate Negative (NEGATIVE) 10/25/17 11:04 Urine Bilirubin Negative (NEGATIVE) 10/25/17 11:04 Urine Urobilinogen Normal mg/dL (0.2-1.0) 10/25/17 11:04 Ur Leukocyte Esterase Neg [place]/uL (Negative) 10/25/17 11:04 Urine WBC (Auto) 2 /hpf (0-5) 10/25/17 11:04 Urine RBC (Auto) 12 /hpf (0-3) H 10/25/17 11:04 Ur Squamous Epith Cells < 1 /hpf (0-5) 10/25/17 11:04 Urine Bacteria Many (<OCC) H 10/25/17 11:04 Blood Type O POSITIVE 10/29/17 17:17 Antibody Screen Negative 10/29/17 17:17 - Hospital Course Hospital Course: CC: "I tripped and fell " HPI: 82 year old female with past medical history significant for HTN, hypercholesterolemia, osteoporosis and prior compression fracture approx 1.5 years ago presents with complaints of pain and instability of right leg. [place] was [place] [employer] earlier this afternoon when she tripped and fell on a rug while going down a short flight of stairs. Patient denies any trauma at the time. She states that she attempted to stand with the help of nearby friends and the rv body mechanic but was unable to. She was thus brought to the hospital for further evaluation. Patient states that she had a fall back in July which resulted in a fracture of her left arm requiring surgery. Patient states that prior to this event and her fall back in July, she felt just fine. She states that she has been going to physical therapy three times a week following the arm fracture. Prior to these recent falls, patient has not had any issues ambulating . She denies any other contributing factors such as dizziness, headaches, lightheadedness, chest pain, dyspnea, trouble ambulating, paresthesias or palpitations at this time. Past Medical history: as stated above Past Surgical History: Left arm surgery approx August 13, 2017 Family History: Dad and brother of heart disease, Sister had diabetes; Mom had a lung condition as well as dysphagia Medications: Patient is unsure at this time. She states that she takes something for her HTN and cholesterol. 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 Allergies: no known drug allergies PMD: [facility]. J[facility]: Patient was admitted on 10/24/17 for right hip fracture. In ED, labs were obtained, XRAY of the hip and pelvis was taken, and patient administered Tylenol and morphine for pain. Hip xray showed comminuted displaced right intratrochanteric fracture deformity. Hip CT was ordered and showed acute intertrochanteric fracture of the right hip. Orthopedic surgery was consulted, Dr. Francisco Garcia. Chest xray and EKG were ordered pre-operatively. Chest xray showed biapical pleural thickening with upper lobe granulomatous changes and diffuse increased interstitial lung markings. EKG showed atrial fibrillation with RVR. Patient was started on Cardizem and cardiology, Dr. Soliman , was consulted. Patient was monitored on telemetry. Echocardiogram was ordered and showed EF 70%, diastolic dysfunction, mild MR, mild pulm HTN, and mild pulm valve regurgitation. Patient's medical history, to include hypertension and hypercholesterolemia, were monitored and managed throughout hospital course. Patient went to the OR on 10/26/17 for right hip displaced IT fx closed reduction , internal fixation with hip nail. Patient was administered antibiotics and pain medications as needed. On 10/29/17, patient hemoglobin decreased. Patient was given one unit of PRBC and repeat hemoglobin improved. Patient was given ensure and megace daily for poor appetite. PT/OT was ordered post-operatively. Patient was then started on Eliquis twice daily. Patient's post-op dressings were changed and checked daily. Patient was seen and examined daily, throughout hospital stay. Patient is stable for discharge to [facility] rehab. Patient must continue medications. Patient should follow up with their PMD and with Dr. Francisco Garcia within one week of discharge. This is a brief summary of the hospital course. Please see EMR for more details. Discharge Exam - Head Exam Head Exam: ATRAUMATIC, NORMAL INSPECTION - Eye Exam Eye Exam: EOMI - ENT Exam ENT Exam: Mucous Membranes Moist - Respiratory Exam Respiratory Exam: Decreased Breath Sounds, NORMAL BREATHING PATTERN, UNREMARKABLE. absent: Rhonchi, Wheezes - Cardiovascular Exam Cardiovascular Exam: Irregular Rhythm, +S1, +S2 - GI/Abdominal Exam GI & Abdominal Exam: Firm, Normal Bowel Sounds, Soft, Tenderness. absent: Distended - Extremities Exam Additional comments: dressing clean, dry, intact - Neurological Exam Neurological exam: Alert, Oriented x3 - Psychiatric Exam Psychiatric exam: Normal Mood - Skin Skin Exam: Dry, Intact, Normal Color, Warm Discharge Plan - Follow Up Plan Condition: GUARDED Disposition: REHAB FACILITY/REHAB UNIT Instructions: Heart Healthy Diet (DC), Pain Management After Surgery (DC), Hip Fracture (GEN), Intramedullary Nailing (DC) Additional Instructions: Patient is stable for discharge to [facility]. Patient should continue all medications. Patient should follow up with their PMD, Dr. Downey, within one week of discharge. If symptoms worsen or reoccur, patient should return to the ED. Referrals: Obie Urias MD [Staff Provider] - Nayan Downey Jr., MD [Medical Doctor] -
--- NOTE | 2017-12-22 13:04 | OP ---
PROCEDURE DATE: 10/26/2017. PREOPERATIVE DIAGNOSIS: Right hip displaced intertrochanteric hip fracture. POSTOPERATIVE DIAGNOSIS: Right hip displaced intertrochanteric hip fracture. PROCEDURES: Right hip displaced intertrochanteric hip fracture. 1. Closed reduction. 2. Internal fixation with hip nail (PFN nail). SURGEON: Obie Bolden MD. INSPECTOR MACHINED PARTS: Bravo Luna MD. JUSTIFICATION FOR INSPECTOR MACHINED PARTS: Bravo Luna is a board certified general surgeon who is a skilled surgical garment assembly supervisor whose presence was an absolute necessity for successful completion of the procedure as he provided skilled surgical assistance with positioning of the patient, positioning of extremity, fracture table fixation, facilitating close reduction, facilitating placement of internal fixation including the intramedullary nail, helical blade, distal interlocking screw, retraction of the neurovascular structures, wounds closure, transport and transfer of the patient to and from the fracture table safely and ensuring the patient's safety and padding. Bravo Luna was present for the entire case, was an absolute necessity for successful completion of the procedure. ANESTHESIA: General endotracheal anesthesia. SPECIMENS: None. COMPLICATIONS: None. DRAINS: None. ESTIMATED BLOOD LOSS: 50 mL. IMPLANTS: Synthes short PFNA nail, 11 mm diameter, 100 mm length helical blade, 36 mm length distal interlocking screw. INDICATIONS FOR SURGERY: The patient is an 82-year-old female with multiple past medical history who had a fall at home resulting in right hip pain and inability to weight bear or ambulate. She presented to the emergency room at [facility] on 10/24/2017 and after reviewed imaging and evaluation by ER staff, she was diagnosed with right hip displaced intertrochanteric hip fracture. Orthopedic consultation was placed and the patient was admitted to the medical service under Dr. Nayan Downey. We obtained medical clearance and optimization and the patient was scheduled for right hip closed versus open reduction and internal fixation with hip nail. I evaluated the patient as an inpatient after initial evaluation by the orthopedic PA and agreed with the assessment and plan. The patient was indeed indicated for right hip closed versus open reduction and internal fixation with a hip nail. The risks, benefits and alternatives of the procedure were discussed at length with the patient and her family with the use of a Fijian-speaking slot machine mechanic with the risks including but not limited to infection, neurovascular damage, nonunion, malunion, failure of hardware, need for further surgery, development of blood clots including DVT and PE, development of chronic pain and disability, need for further surgery, inability to return to preinjury level of activity and ambulation, , cardiopulmonary collapse, anesthesia reactions including . After answering all of their questions, they stated that they understood the risks and wished to proceed with surgery. I spent a long time with the patient and her family with the use of a Fijian-speaking slot machine mechanic explaining the procedure and the diagnosis and they stated that they understood both. Once again once medical optimization was obtained, we were able to schedule the patient during normal hours with the orthopedic surgical team. The procedure was scheduled for 10/26/2017 at [facility]. PROCEDURE IN DETAIL: The patient was identified in the preoperative holding area and once again as described above with the use of Fijian-speaking slot machine mechanic, the risks, benefits and alternatives to the procedure were discussed at length with the patient and her family, and informed consent was obtained. The right hip was marked for surgery. After a brief discussion with the anesthesia staff, perioperative IV antibiotics were administered. The patient was taken to the operating room on her hospital bed. An initial time-out was done. General anesthesia was administered without difficulty or complication. The patient was then carefully transferred to the fracture top table. All bony prominence and superficial neurovascular structures were well padded. The left lower extremity was placed in the well leg velasquez. The left arm was placed in a armboard, well padded. The right arm was well padded and stabilized across the patient's chest. The right lower extremity was placed in a fracture boot and in the traction side of the fracture table. A final time-out was done with the surgeon, anesthesia staff and OR staff and all in agreement with the patient, procedure being done and the extremity being operated on. With the use of biplanar fluoroscopic imaging, an attempt at a closed reduction was carried out. Prereduction x-rays were taken confirming the displaced intertrochanteric hip fracture. With traction and internal rotation and adduction, a closed reduction attempt was carried out and an anatomic reduction resulted. We were happy with our alignment and anatomic reduction of the fracture. At that point in time the right hip was prepped and draped in the standard sterile fashion for the internal fixation. With the use of a guidewire, the entry point at the greater trochanteric hip was identified and confirmed and a 3-cm incision was made proximal to the greater trochanteric hip. Incision was made through skin down to the subcutaneous tissue, down to level of the fascia. Fascia was sharply incised and blunt dissection was carried down to the tip of the greater trochanter. Once again, the guidewire was placed at the tip of the greater trochanter and advanced down to level of the lesser trochanter. Biplanar fluoroscopic imaging was used to confirm center-center position. The proximal reamer with the soft tissue guide in position was then advanced over the K-wire. This was advanced down to the level of lesser trochanter to allow for easy access of the intramedullary nail. With the alignment guide in position,the nail was then advanced through the proximal incision into the hole at the tip of the greater trochanter into the proximal femoral shaft. Biplanar fluoroscopic imaging was used to confirm the level of the nail and optimal placement of the helical blade. Once we determined that we were in a good position for the helical blade placement, the guide was used to determine the position of the incision. A laterally based incision at the mid thigh was then made approximately 2 cm in length through skin down to subcutaneous tissue, down to the fascia, down to the lateral femoral shaft bone proximally. The triple-sleeve guide was then advanced up until it was flushed with the lateral cortex of the proximal femoral shaft. A guidewire was advanced through the guide into the femoral neck and shaft junction with a little bit of an inferior placement in better quality bone. Biplanar fluoroscopic imaging confirmed center-center placement of the K-wire on the femoral head with good tip-to-apex distance. Measurements were taken revealing a 95 mm helical blade measurement. Cannulated drill was advanced up to the 95 mm depth. A 95 mm helical blade was then impacted over the guidewire until it was in good position with the good tip-to-apex distance seen and confirmed. The traction was then removed from the right lower extremity and compression was achieved across the fracture through the helical blade. The helical blade was then locked proximally through the facet screw. Attention was then turned towards placement of the distal interlocking screw. Through the same incision for the helical blade, we were able to place the distal interlocking screw. The triple-sleeve was then assembled through the guide for the distal interlocking screw. The drill was then advanced bicortically. A measurement was taken. A 36-mm screw was placed bicortically with good fixation. Final fluoroscopic imaging was taking confirming anatomic reduction of the fracture and good placement of the fixation hardware. All wounds were copiously irrigated and the guide was removed. Deep tissue and fascia were reapproximated with #1 Vicryl suture followed by 2-0 Vicryl suture for subcutaneous tissue, followed by mariano for skin. Sterile dressings were applied. The patient was then carefully transferred from the fracture table to her hospital bed where she was extubated and transferred to PACU in stable condition and tolerated the procedure well. DISPOSITION: The patient will remain as an inpatient until she is medically stable for discharge to rehab or a facility. I will monitor outcome and progress as an inpatient. She will be started on DVT prophylaxis in the form of 40 mg Lovenox administered subcutaneous once daily starting postoperative day #1 unless the medical team has another DVT prophylaxis or treatment in their plan. She will receive adequate pain control with minimum narcotic use, she will work with physical therapy, case management and social work to determine optimum placement. She will be weightbearing as tolerated with no restrictions and work with physical therapy on ambulation and transfers. She will be out of bed as much as possible. Obie Bolden MD
== END 2017-11-02 14:31 | DRG 481 ==
LOC: C.ER 13:03 → EDBD 13:03 → MERGE 15:07 → C.9E 15:07 → C.6T 19:53 → C.9E 20:04
PROVIDERS: ADMIT Internal Medicine; ATTEND Internal Medicine
PROC: 0QS636Z Reposition Right Upper Femur with Intramedullary Internal Fixation Device, Percutaneous Approach (ICD-10-PCS; principal; 2017-10-26 12:30)
DX: S72.141A Displaced intertrochanteric fracture of right femur, initial encounter for closed fracture (principal); D62 Acute posthemorrhagic anemia; I27.20 Pulmonary hypertension, unspecified; I48.0 Paroxysmal atrial fibrillation; W10.9XXA Fall (on) (from) unspecified stairs and steps, initial encounter; Y92.22 Religious institution as the place of occurrence of the external cause; E78.00 Pure hypercholesterolemia, unspecified; I10 Essential (primary) hypertension; K59.00 Constipation, unspecified; M81.0 Age-related osteoporosis without current pathological fracture; Z83.3 Family history of diabetes mellitus; Z82.49 Family history of ischemic heart disease and other diseases of the circulatory system; Z91.81 History of falling; R29.6 Repeated falls